=== PATIENT | female | born 2000 | race Caucasian/White ===

== ENCOUNTER → 2020-07-19 13:20 | Outpatient (CLI) | payer OTHER, MEDICAID, SELFPAY | PROVIDERS: Visit Provider Nurse Practitioner | DX: R30.0 Dysuria (principal) | CPT/HCPCS: 87077; 87086; 87186 ==

== ENCOUNTER → 2020-12-15 15:19 | Outpatient (CLI) | payer OTHER, MEDICAID, SELFPAY ==
[2020-12-15 16:18] LABS: Add Manual Diff / Slide Review NO; Basophils Absolute Auto 0 /uL (0-100); Basophils Percent Auto 0.8 % (0-2); Eosinophils Absolute Auto 0 /uL (0-450); Eosinophils Percent Auto 0.5 % (2-4); Hematocrit 40.6 % (36-46); Hemoglobin 13.5 g/dL (12.0-16.0); Lymphocytes Absolute Auto 1000 /uL (1100-4500); Lymphocytes Percent Auto 18.1 % (25-40); Mean Corpuscular HGB Conc 33.2 % (30-36); Mean Corpuscular Hemoglobin 30.8 PG (26-34); Mean Corpuscular Volume 92.9 fL (80-100); Monocytes Absolute Auto 400 /uL (0-900); Monocytes Percent Auto 6.9 % (3-14); Neutrophils Absolute Auto 3900 /uL (1500-7000); Neutrophils Percent Auto 73.7 % (50-75); Platelet Count 141 X10^3/uL (150-400); Red Blood Cell Count 4.37 X10^6/uL (4.0-5.2); Red Cell Distribution Width 13.1 % (11.6-14.8); White Blood Cell Count 5.3 X10^3/uL (4.5-11.0)
[2020-12-15 16:40] LABS: Appearance Urine UA CLEAR; Bilirubin Urine UA NEGATIVE (NEGATIVE); Color Urine UA YELLOW; Glucose Urine UA NEGATIVE (Negative); Ketones Urine UA NEGATIVE (NEGATIVE); Leukocyte Esterase Urine UA NEGATIVE (NEGATIVE); Nitrite Urine UA NEGATIVE (Negative); Occult Blood Urine UA TRACE-LYSED (Negative); Protein Urine UA NEGATIVE (Negative); Specific Gravity Urine UA 1.025 (1.000-1.035); Urobilinogen Urine UA 0.2 E.U./dL (0.2)
[2020-12-15 17:05] LABS: RBC Urine 1-5/HPF (0-5/HPF); Squamous Epithelial Cell Urine 1-5 /HPF (0-5/HPF); WBC Urine 0-1/HPF (0-5/HPF)
[2020-12-15 17:06] LABS: Bacteria Urine Many (>30); Culture Indicated Urine Cult Not Indicated
[2020-12-15 17:18] LABS: Alanine Aminotransferase 19 IU/L (<35); Albumin 4.7 g/dL (3.5-5.0); Albumin Globulin Ratio 1.7 (1.0-2.8); Alkaline Phosphatase 47 U/L (38-126); Aspartate Aminotransferase 27 IU/L (14-36); BUN Creatinine Ratio 21.3 (6-22); Bilirubin Total 0.2 mg/dL (0.2-1.3); Blood Urea Nitrogen 16 mg/dL (7-17); Calcium 9.7 mg/dL (8.4-10.2); Carbon Dioxide 26 mmol/L (22-32); Chloride 103 mmol/L (98-107); Estimated Glomerular Filt Rate > 60.0 mL/min (>60); Globulin 2.8 g/dL (1.7-4.1); Glucose 101 mg/dL (70-100); HEMOLYSIS < 15 (0-50); Lipase 51 U/L (23-300); Potassium 3.9 mmol/L (3.4-5.1); Sodium 137 mmol/L (137-145); Total Protein 7.5 g/dL (6.3-8.2)
[2020-12-15 17:48] LABS: TSH w/ Reflex to FT4 0.99 uIU/mL (0.47-4.68)
[2020-12-16 22:48] LABS: Deamidated Gliadin Ab IgA 5 units (0-19); Deamidated Gliadin Ab IgG 2 units (0-19); Immunoglobulin A,Qn 119 mg/dL (87-352); t-Transglutaminase IgA <2 U/mL (0-3)
== END ==
PROVIDERS: PCP Registered Nurse Diabetes Educator; Referring Provider Registered Nurse Diabetes Educator; Visit Provider Registered Nurse Diabetes Educator
DX: K52.9 Noninfective gastroenteritis and colitis, unspecified (principal); R15.2 Fecal urgency; R15.9 Full incontinence of feces
CPT/HCPCS: 36415; 80053; 81001; 82784; 83516; 83690; 84443; 85025

== ENCOUNTER → 2020-12-24 12:45 | Outpatient (CLI) | payer OTHER, MEDICAID, SELFPAY | PROVIDERS: PCP Registered Nurse Diabetes Educator; Referring Provider Registered Nurse Diabetes Educator; Visit Provider Registered Nurse Diabetes Educator | DX: K52.9 Noninfective gastroenteritis and colitis, unspecified (principal); R15.2 Fecal urgency; R15.9 Full incontinence of feces | CPT/HCPCS: 87045; 87177; 87899 ==

== ENCOUNTER → 2021-03-01 11:03 | Outpatient (CLI) | payer OTHER, MEDICAID, SELFPAY ==
[2021-03-01 12:37] LABS: COVID19 -Nasal RAPID Negative (Negative)
== END ==
PROVIDERS: PCP Registered Nurse Diabetes Educator; Visit Provider Physician Assistant
DX: Z20.822 Contact with and (suspected) exposure to COVID-19 (principal); Z01.812 Encounter for preprocedural laboratory examination
CPT/HCPCS: 87635

== ENCOUNTER 2021-03-03 12:12 | Day surgery (SDC) | payer OTHER, MEDICAID, SELFPAY ==
--- NOTE | 2021-03-03 | PATH_ITS ---
[facility] Accession Number: [id number] . 01 Material submitted: . colon - RANDOM COLON . 01 Clinical history: . DIARRHEA; RULE OUT IBD . 02 Diagnosis: Random Colon, Biopsies: Colonic mucosa with no diagnostic abnormality. Negative for active, chronic, and microscopic colitis. Negative for dysplasia and malignancy. . [facility] 03/05/2021 1122 Local . 02 Electronically signed: . Marguerite Mueller MD, Pathologist NPI- [id number] . 01 Gross description: . RANDOM COLON: Received in formalin are multiple fragment(s) of mac, soft tissue measuring 2.0 x 0.8 x 0.1 cm in aggregate submitted entirely in 1 cassette(s) /CHIP 03/04/2021 0637 Local . 02 Pathologist provided ICD-10: R19.7 . 02 CPT . 021667 Performed at: 01 [facility] [address], [place], [place] [id number] MD Kenji De Dios MD Phone: [phone] Performed at: 02 [facility] [address] [place], [place] [id number] MD Marguerite Mueller MD Phone: [phone]
[2021-03-03 12:33] VITALS: BMI 25.9
[2021-03-03 12:46] VITALS: BP 128/80; PULSE 75; RESP 12; TEMP 36.2; O2SAT 95
[2021-03-03] MEDS: SODIUM CHLORIDE 0.9% 1,000 ML 70 ML IV (12:56)
--- NOTE | 2021-03-03 13:27 | PM.HP.1 ---
History of Present Illness History of Present Illness Date Patient Seen: 03/03/21 Time Patient Seen: 13:21 Chief complaint: SDC Narrative: Patient is a very pleasant 18-year-old female who presented for colonoscopy. She has been having frequent diarrhea and episodes of fecal incontinence. She has continued to have these symptoms since being seen in the office. Patient History Medical History (Updated 01/20/21 @ 13:11 by Brandy Griffith) Chronic diarrhea History of recurrent UTI (urinary tract infection) History of seizure disorder No significant family history Recurrent UTI Seizure disorder Surgical History (Updated 01/20/21 @ 13:11 by Brandy Griffith) Anesthesia [place] teeth removed (~2013) Family & Social History Family History (Updated 01/20/21 @ 13:16 by Brandy Griffith) Grandmother Hypertension Inflammatory bowel disease Seizure disorder Thyroid disorder Stroke Epilepsy Family/Other Cancer Stroke Father Diabetes mellitus Hyperlipidemia Grandfather History of heart disease Hyperlipidemia Grandmother Diabetes mellitus History of heart disease Hyperlipidemia Hypertension Social History: household members family Tobacco & Substance use: Tobacco type cigarettes Smoking Status Current some day smoker alcohol intake current alcohol intake frequency a few times a week Substance Use Type does not use Meds Home Medications and Allergies Home Medications Medication Instructions Recorded Confirmed Type norgestrel 0.3 mg-ethinyl 1 tab PO DAILY 09/17/20 03/03/21 History estradiol 30 mcg tablet valacyclovir 500 mg tablet 500 mg PO DAILY 12/15/20 03/03/21 History Allergies Allergy/AdvReac Type Severity Reaction Status Date / Time Penicillins AdvReac Unknown Anaphylaxis Verified 03/03/21 12:30 Review of Systems Review of Systems ROS: Yes All systems reviewed with the patient and are negative except as otherwise documented Exam Vital Signs (past 8 hours): - 03/03/21 12:46 Temperature 97.2 F L Pulse Rate 75 Respiratory Rate 12 Blood Pressure 128/80 Pulse Oximetry 95 Oxygen Delivery Method Room Air Const General: cooperative, healthy appearing, comfortable, well developed and well groomed Nutritional Appearance: average body habitus Orientation: alert, awake and oriented x3 HENMT Head: normal to inspection, normocephalic and atraumatic Resp Effort & Inspection: normal respiratory effort and able to speak in complete sentences Auscultation: clear to auscultation bilaterally Cardio Rate: regular rate Rhythm: regular rhythm Heart Sounds: S1 normal and S2 normal GI Palpation: soft Auscultation: normal bowel sounds Extrem Right lower extremity: no edema Left lower extremity: no edema Assessment & Plan Assessment & Plan narrative: 1. Diarrhea 2. Fecal incontinence Colonoscopy today, further recommendations will follow
[2021-03-03] MEDS: fentaNYL 250 MCG/5 ML INJ IV (13:33)
[2021-03-03] MEDS: MIDAZOLAM 5 MG/5 ML VIAL IV ×2 (13:34→13:46)
[2021-03-03 13:59] VITALS: BP 111/68; PULSE 65; RESP 14; TEMP 36.5; O2SAT 98
--- NOTE | 2021-03-03 14:02 | PM.OP.ENDO ---
Operative Date/Time/Diagnoses Date of procedure: 03/03/21 Time of procedure: 13:33 Procedure Notes Procedure in detail: Surgeon: Eva Cowart DO Procedure: Colonoscopy with biopsies Preoperative diagnosis: 1. Diarrhea 2. Fecal incontinence Postoperative diagnosis: 1. Normal-appearing colon mucosa, random biopsies obtained 2. Normal-appearing terminal ileum 3. Grade 1 internal hemorrhoids 4. Pelvic floor dysfunction on awake rectal exam Medications: Conscious sedation using 7 mg IV of Midazolam and 175 mcg IV of Fentanyl Preanesthesia Assessment An H and P was performed/updated and the Px?s ASA class is 1. The procedure was discussed in detail with the patient. The potential risks and complications including infection, bleeding, missed lesions, perforation, need for surgery in case of perforation, prolonged hospital stay, and were explained. A brief question and answer period was allotted and once all questions were answered, informed consent was obtained. The patient was brought back to the procedure room and placed on standard monitoring. The patient?s vital signs were monitored continuously throughout the entire procedure. Prior to starting, a timeout was performed to confirm the patient?s identity, allergies, medications, and procedure. Procedure in detail The patient was placed in left lateral decubitus position and once adequate sedation was obtained a KE was performed prior to sedation. Patient was noted to have weak squeeze with good descent consistent with dyssynergic defecation. The digital rectal examination did not reveal any palpable lesions. The tip of the colonoscope was placed in the anal canal and advanced without difficulty all the way to the cecum which was identified by the appendiceal orifice and the ileocecal valve. Careful examination of all romo of the colon was performed with irrigation of any residual stool. Colon mucosa appeared unremarkable. Random colon biopsies were obtained to rule out microscopic colitis versus quiescent colitis. Terminal ileum appeared unremarkable. Grade 1 internal hemorrhoids were noted on retroflexion. The patient tolerated the procedure well and will be brought back to the recovery area to be discharged once criteria are met. The prep was judged to be good/excellent and adequate to identify polyps less than 5 mm. The withdrawal time was 8min. The total physician intraservice time was 20 min. Complications There were no complications and estimated blood loss was minimal. Recommendations: Resume previous diet Continue outPx medications Follow up pathology results Repeat colonoscopy based on pathology results Office follow up as previously scheduled Consider pelvic floor physical therapy An emergency contact number was given to the patient for any complications related to the procedure
[2021-03-03 14:04] VITALS: BP 103/59; PULSE 64; RESP 17; O2SAT 97
[2021-03-03 14:09] VITALS: BP 101/54; PULSE 64; RESP 17; O2SAT 96
[2021-03-03 14:14] VITALS: BP 104/53; PULSE 65; RESP 18; TEMP 36.4; O2SAT 96
[2021-03-03 14:18] VITALS: BP 114/67; PULSE 69; RESP 20; TEMP 36.8; O2SAT 100
== END 2021-03-03 14:29 | disposition home or self-care (01) ==
PROVIDERS: PCP Registered Nurse Diabetes Educator; Referring Provider Student in an Organized Health Care Education/Training Program; Visit Provider Student in an Organized Health Care Education/Training Program
PROC: 0DJD8ZZ Inspection of Lower Intestinal Tract, Via Natural or Artificial Opening Endoscopic (ICD-10-PCS; CPT 45378; principal; 2021-03-03 13:30)
DX: R19.7 Diarrhea, unspecified (principal); R15.9 Full incontinence of feces; G40.909 Epilepsy, unspecified, not intractable, without status epilepticus; Z87.440 Personal history of urinary (tract) infections; K64.0 First degree hemorrhoids
CPT/HCPCS: 45380; 81025; J2250; J3010

== ENCOUNTER → 2021-11-02 17:53 | Outpatient (CLI) | payer OTHER, MEDICAID, SELFPAY | PROVIDERS: PCP Registered Nurse Diabetes Educator; Visit Provider Student in an Organized Health Care Education/Training Program | DX: M54.9 Dorsalgia, unspecified (principal) | CPT/HCPCS: 81002; 81025; 87086 ==

== ENCOUNTER 2021-12-14 09:38 | Emergency (ER) | payer OTHER, MEDICAID, SELFPAY ==
[2021-12-14 10:16] VITALS: BP 147/87; PULSE 88; RESP 17; TEMP 36.6; O2SAT 100; BMI 23.6
--- NOTE | 2021-12-14 10:22 | DI.RAD.S_ITS ---
PROCEDURE: XR RIBS RT MIN 3V W CXR 1V INDICATIONS: rib pain TECHNIQUE: 2 views of the right ribs were acquired, along with a single view chest. COMPARISON: None. FINDINGS: Surgical changes and devices: None. Bones and chest wall: A marker is placed upon the area of clinical concern. Within this region, no displaced rib fracture or other significant rib abnormality can be seen. No rib fractures are seen elsewhere. No suspicious bony lesions. Overlying soft tissues appear unremarkable. Lungs and pleura: No pleural effusions or pneumothorax. Lungs appear clear. Mediastinum: Mediastinal contours appear normal. Heart size is normal. IMPRESSION: No displaced rib fracture is seen. No pneumothorax. Dictated by: Alexander Singh M.D. on 12/14/2021 at 9:58 Approved by: Alexander Singh M.D. on 12/14/2021 at 9:58
[2021-12-14 11:34] VITALS: BP 128/71; PULSE 65; O2SAT 100
--- NOTE | 2021-12-14 11:42 | PC.NURSE ---
Pt reports right sided rib pain located under breast. Movement makes pain worse. Breath sounds present bilaterally. States it is difficult/ painful to take a deep breath. Pt updated and waiting to be seen by MD.
--- NOTE | 2021-12-14 12:01 | ED.EXTPRO ---
HPI - Extremity Problem General Chief complaint: Extremity Problem,Nontraumatic Stated complaint: Sore rib, worsening Time Seen by Provider: 12/14/21 11:45 Source: patient Mode of arrival: Family Vehicle History of Present Illness HPI Narrative: Patient is a 21-year-old female who is here for evaluation of right-sided rib/chest wall discomfort. She states that it started a couple days ago. This was a couple days after she helped move her grandfather around in his bed. She does not remember specific incidence the cause the discomfort. She also states that she slept on the floor a couple nights after that. She states that on Monday she was seen at the walk-in clinic and was given a muscle relaxer which has not improved in the of her symptoms. It is tender to touch and is tender to take a deep breath. Has been taking Tylenol and ibuprofen. No breast symptoms. Related Data Home Medications Medication Instructions Recorded Confirmed norgestrel 0.3 mg-ethinyl 1 tab PO DAILY 09/17/20 11/02/21 estradiol 30 mcg tablet (Elinest) valacyclovir 500 mg tablet 500 mg PO DAILY 12/15/20 11/02/21 Previous Rx's Medication Instructions Recorded glycopyrronium tosylate 2.4 % 1 applic TOPICAL DAILY #30 ea 05/27/21 towelette methocarbamol 500 mg tablet See Rx Instructions PO Q6-8H PRN 12/10/21 #20 tab Allergies Allergy/AdvReac Type Severity Reaction Status Date / Time Penicillins AdvReac Unknown Anaphylaxis Verified 11/02/21 18:00 Review of Systems Constitutional Constitutional: Denies fever(s) Cardiovascular Cardiovascular: Reports as per HPI and Reports system reviewed and no additional complaints, except as documented Respiratory Respiratory: Reports as per HPI and Reports system reviewed and no additional complaints, except as documented Gastrointestinal Gastrointestinal: Reports as per HPI and Reports system reviewed and no additional complaints, except as documented Integumentary/Breasts Skin/Breast: Reports system reviewed and no additional complaints, except as documented and Reports as per HPI Hematologic/Lymphatic On Anticoagulants: No Patient History Medical History Chronic diarrhea History of recurrent UTI (urinary tract infection) History of seizure disorder Hyperhidrosis of axilla No significant family history Recurrent UTI Seizure disorder Surgical History Anesthesia [place] teeth removed (~2013) Family History Grandmother Hypertension Inflammatory bowel disease Seizure disorder Thyroid disorder Stroke Epilepsy Family/Other Cancer Stroke Father Diabetes mellitus Hyperlipidemia Grandfather History of heart disease Hyperlipidemia Grandmother Diabetes mellitus History of heart disease Hyperlipidemia Hypertension Social History marital status: unmarried,single household members: family occupational status: employed Smoking Status: Current some day smoker Tobacco: How many years used: 2 alcohol intake: current caffeine: No Smoking Status: Current some day smoker tobacco type: cigarettes alcohol intake frequency: 0-2 drinks per day Substance Use Type: does not use and marijuana Exam Initial Vital Signs Initial Vital Signs: Vital Signs Temperature 98 F 12/14/21 10:16 Pulse Rate 88 12/14/21 10:16 Respiratory Rate 17 12/14/21 10:16 Blood Pressure 147/87 H 12/14/21 10:16 Pulse Oximetry 100 12/14/21 10:16 HENMT Head: normal to inspection and normocephalic Chest Other: Patient tender to palpation mid/lower ribs from mid axillary line anterior. Resp Effort & Inspection: normal respiratory effort, not labored and not tachypneic Auscultation: clear to auscultation bilaterally Cardio Rate: regular rate Rhythm: regular rhythm Skin General: no rashes or lesions noted Neuro General: patient alert, patient awake, patient oriented x3 and moves all extremities Extrem General: normal to inspection and capillary refill normal Psych Appearance: grossly normal and well kempt Course Orders Ordered: ED Orders 12/14/21 10:22 XR ribs RT min 3V w CXR1V Stat Vital Signs Vital signs: Vital Signs - 8 hr 12/14/21 10:16 12/14/21 11:34 Temperature 98 F Pulse Rate 88 65 Respiratory Rate 17 Blood Pressure 147/87 H 128/71 Pulse Oximetry 100 100 MDM - Extremity (Nontraumatic) Imaging Data Rib x-ray: Radiologist's Impression: [address] [address] XRay Report Signed Patient: Norah Mims MR#: [id number] : 2000 Acct:[id number] Age/Sex: 21 / F Date of Service: 12/14/21 Loc: ED Accession Number: [id number] ?? Procedure: XR ribs RT min 3V w CXR1V Ordering Provider: Rehan Glover D.O. PROCEDURE:? XR RIBS RT MIN 3V W CXR 1V ? INDICATIONS:? rib pain ? TECHNIQUE:? 2 views of the right ribs were acquired, along with a single view chest.? ? COMPARISON:? None. ? FINDINGS:? ? Surgical changes and devices:? None.? ? Bones and chest wall:? A marker is placed upon the area of clinical concern.? Within this region, no displaced rib fracture or other significant rib abnormality can be seen.? No rib fractures are seen elsewhere.? No suspicious bony lesions.? ? Overlying soft tissues appear unremarkable.? ? Lungs and pleura:? No pleural effusions or pneumothorax.? Lungs appear clear.? ? Mediastinum:? Mediastinal contours appear normal.? Heart size is normal.? IMPRESSION:? No displaced rib fracture is seen. ? No pneumothorax. ? ? Dictated by: Alexander Singh M.D. on 12/14/2021 at 9:58 ? ? Approved by: Alexander Singh M.D. on 12/14/2021 at 9:58 MDM Narrative Medical decision making narrative: Reproducible right-sided chest wall discomfort without fractures noted on the x-rays. There is no skin changes over the area. I did consider other lung pathology to include pulmonary embolism and pneumonia and collapsed lung however I feel this is extremely unlikely given her presentation. I suspect that this is musculoskeletal in origin and given the location consistent with costochondritis. I did discuss this with the patient and family who was at bedside. Inform them that they could most likely stop the Flexeril as it is not going to help her symptoms. She was given return precautions. She expressed understanding and agreement. Discharge Plan Departure Patient Disposition: Home Clinical Impression: Acute costochondritis Instructions: DI for Costochondritis Activity Restrictions/Additional Instructions: I do recommend that you continue with anti-inflammatories such as Tylenol or ibuprofen. Contact your primary doctor for a follow-up. Return to the emergency department for any new or worsening symptoms. Prescriptions: No Action methocarbamol 500 mg tablet See Rx Instructions PO Q6-8H PRN (Reason: muscle spasm) Qty: 20 0RF Rx Instructions: 1-2 tablets PO every 6-8 hours PRN; Elinest 0.3-30 mg-mcg tablet 1 tab PO DAILY 0RF valacyclovir 500 mg tablet 500 mg PO DAILY 0RF glycopyrronium tosylate 2.4 % towelette 1 applic topical DAILY Qty: 30 1RF Referrals: Jose Banuelos ARNP [Primary Care Provider] -
== END 2021-12-14 12:11 | disposition home or self-care (01) ==
PROVIDERS: Emergency Provider Emergency Medicine; PCP Registered Nurse Diabetes Educator
DX: M94.0 Chondrocostal junction syndrome [Tietze] (principal); F17.210 Nicotine dependence, cigarettes, uncomplicated
CPT/HCPCS: 71101; 99283

== ENCOUNTER → 2022-01-03 09:11 | Outpatient (CLI) | payer OTHER, MEDICAID, SELFPAY | PROVIDERS: PCP Registered Nurse Diabetes Educator; Visit Provider Registered Nurse Diabetes Educator | DX: N94.9 Unspecified condition associated with female genital organs and menstrual cycle (principal); N89.8 Other specified noninflammatory disorders of vagina | CPT/HCPCS: 81002; 87086; 87210; 87220 ==

== ENCOUNTER → 2022-02-09 11:40 | Outpatient (CLI) | payer OTHER, MEDICAID, SELFPAY | PROVIDERS: PCP Registered Nurse Diabetes Educator; Visit Provider Physician Assistant | DX: N39.0 Urinary tract infection, site not specified (principal) | CPT/HCPCS: 87086 ==

== ENCOUNTER → 2022-02-09 12:30 | Outpatient (CLI) | payer OTHER, MEDICAID, SELFPAY ==
[2022-02-09 12:51] LABS: Hematocrit 37.5 % (36-46); Hemoglobin 12.8 g/dL (12.0-16.0); Lymphocytes Percent Auto 14.1 % (25-40); Mean Corpuscular HGB Conc 34.2 % (30-36); Mean Corpuscular Hemoglobin 30.6 PG (26-34); Mean Corpuscular Volume 89.5 fL (80-100); Monocytes Percent Auto 6.2 % (3-14); Neutrophils Percent Auto 78.9 % (50-75); Platelet Count 132 X10^3/uL (150-400); Red Blood Cell Count 4.19 X10^6/uL (4.0-5.2); Red Cell Distribution Width 12.8 % (11.6-14.8); White Blood Cell Count 5.5 X10^3/uL (4.5-11.0)
[2022-02-09 12:52] LABS: Add Manual Diff / Slide Review NO; Basophils Absolute Auto 0 /uL (0-100); Basophils Percent Auto 0.7 % (0-2); Eosinophils Absolute Auto 0 /uL (0-450); Eosinophils Percent Auto 0.1 % (2-4); Lymphocytes Absolute Auto 800 /uL (1100-4500); Monocytes Absolute Auto 300 /uL (0-900); Neutrophils Absolute Auto 4300 /uL (1500-7000)
[2022-02-09 13:06] LABS: Alanine Aminotransferase 35 IU/L (<35); Albumin 4.5 g/dL (3.5-5.0); Albumin Globulin Ratio 1.9 (1.0-2.8); Alkaline Phosphatase 41 U/L (38-126); Aspartate Aminotransferase 29 IU/L (14-36); BUN Creatinine Ratio 9.5 (6-22); Bilirubin Total 0.6 mg/dL (0.2-1.3); Blood Urea Nitrogen 7 mg/dL (7-17); Calcium 9.1 mg/dL (8.4-10.2); Carbon Dioxide 25 mmol/L (22-32); Chloride 105 mmol/L (98-107); Creatine Kinase 57 U/L (30-135); Estimated Glomerular Filt Rate > 60 mL/min (>60); Globulin 2.4 g/dL (1.7-4.1); Glucose 88 mg/dL (70-100); HEMOLYSIS < 15 (0-50); Potassium 3.7 mmol/L (3.4-5.1); Sodium 138 mmol/L (137-145); Total Protein 6.9 g/dL (6.3-8.2)
== END ==
PROVIDERS: Physician Assistant; PCP Registered Nurse Diabetes Educator; Referring Provider Registered Nurse Diabetes Educator; Visit Provider Registered Nurse Diabetes Educator
DX: M54.9 Dorsalgia, unspecified (principal); N39.0 Urinary tract infection, site not specified
CPT/HCPCS: 36415; 80053; 81002; 82550; 85025; 87086

== ENCOUNTER → 2022-08-10 11:13 | Outpatient (CLI) | payer OTHER, MEDICAID, SELFPAY ==
--- NOTE | 2022-08-10 11:14 | DI.US.S_ITS ---
PROCEDURE: US OB <= 14 WEEKS FETUS INDICATIONS: dating and viability OUTSIDE/PRIOR DATING DATA: Last menstrual period (LMP): 06/11/2022. LMP-based estimated date of delivery (EVELINE): 03/18/2023. First dating scan (date and location): 08/10/2022. Estimated date of delivery (EVELINE) from first dating scan: 03/21/2023. The calculations are made using the clinical EVELINE of 03/18/2023. TECHNIQUE: Real-time scanning was performed of the fetus, with image documentation and biometric measurements. COMPARISON: None. FINDINGS: Single live intrauterine with crown-rump length measuring 1.7 cm corresponding to 8 weeks 1 day. heart rate is present 168 beats per minute. Left corpus luteal cyst. IMPRESSION: Single live intrauterine with ultrasound gestational age of 8 weeks 1 day. Recommend follow-up imaging at 20-22 weeks for dates and anatomy. We strive to produce accurate, complete, and clear reports of imaging services. To assist us in improving patient care, this report was composed using standard report templates and voice recognition software. Therefore, it may contain abnormal punctuation, insertions and/or omissions. Occasional wrong-word or sound-alike substitutions may occur. Though we review the report and make efforts to correct it, we do recommend that the report be read carefully in proper context to recognize any text inaccuracies. Dictated by: Nancy Larkin M.D. on 08/10/2022 at 17:18 Approved by: Nancy Larkin M.D. on 08/10/2022 at 17:20
== END ==
PROVIDERS: PCP Registered Nurse Diabetes Educator; Referring Provider Obstetrics & Gynecology; Visit Provider Obstetrics & Gynecology
DX: Z34.01 Encounter for supervision of normal first pregnancy, first trimester (principal); Z3A.08 8 weeks gestation of pregnancy
CPT/HCPCS: 76801; 76817

== ENCOUNTER → 2022-09-01 11:57 | Outpatient (CLI) | payer OTHER, MEDICAID, SELFPAY ==
[2022-09-01 13:36] LABS: Add Manual Diff / Slide Review NO; Basophils Absolute Auto 0 /uL (0-100); Basophils Percent Auto 0.4 % (0-2); Eosinophils Absolute Auto 0 /uL (0-450); Eosinophils Percent Auto 0.3 % (2-4); Hematocrit 36.9 % (36-46); Hemoglobin 12.7 g/dL (12.0-16.0); Lymphocytes Absolute Auto 800 /uL (1100-4500); Lymphocytes Percent Auto 11.6 % (25-40); Mean Corpuscular HGB Conc 34.4 % (30-36); Mean Corpuscular Volume 90.2 fL (80-100); Monocytes Absolute Auto 300 /uL (0-900); Monocytes Percent Auto 5.4 % (3-14); Neutrophils Absolute Auto 5400 /uL (1500-7000); Neutrophils Percent Auto 82.3 % (50-75); Platelet Count 128 X10^3/uL (150-400); Red Blood Cell Count 4.09 X10^6/uL (4.0-5.2); Red Cell Distribution Width 12.6 % (11.6-14.8); White Blood Cell Count 6.5 X10^3/uL (4.5-11.0)
[2022-09-01 13:37] LABS: Appearance Urine UA SL CLOUDY; Bilirubin Urine UA NEGATIVE (NEGATIVE); Color Urine UA YELLOW; Glucose Urine UA NEGATIVE (Negative); Ketones Urine UA NEGATIVE (NEGATIVE); Leukocyte Esterase Urine UA 1+ (NEGATIVE); Nitrite Urine UA NEGATIVE (Negative); Occult Blood Urine UA NEGATIVE (Negative); Protein Urine UA TRACE (Negative); Urobilinogen Urine UA 0.2 E.U./dL (0.2)
[2022-09-01 14:43] LABS: RBC Urine None Seen (0-5/HPF); Squamous Epithelial Cell Urine 1-5 /HPF (0-5/HPF); WBC Urine 5-10/HPF (0-5/HPF)
[2022-09-01 14:44] LABS: Amorphous Sediment Urine 1+; Bacteria Urine Moderate (10-30); Culture Indicated Urine Specimen Cultured; Mucus Urine 1+ (Negative)
[2022-09-01 16:37] LABS: HIV 1 & 2 Ab/Ag 4th Gen Combo NEGATIVE (NEGATIVE); Hep C Virus Ab w/Reflex Quant NEGATIVE s/c (NEGATIVE); Hepatitis B Surface Antigen NEGATIVE s/c (NEGATIVE); Rubella Antibody IgG 46.5 IU/mL (>15)
[2022-09-02 07:17] LABS: Varicella IgG Antibody 699 index (Immune >165)
[2022-09-02 09:01] LABS: RPR Screen Non Reactive (Non Reactive)
== END ==
PROVIDERS: PCP Registered Nurse Diabetes Educator; Referring Provider Obstetrics & Gynecology; Visit Provider Obstetrics & Gynecology
DX: Z34.01 Encounter for supervision of normal first pregnancy, first trimester (principal)
CPT/HCPCS: 36415; 80055; 81003; 81015; 86787; 86803; 86850; 86900; 86901; 87086; 87389

== ENCOUNTER → 2022-10-05 12:22 | Outpatient (CLI) | payer OTHER, MEDICAID, SELFPAY ==
[2022-10-07 22:07] LABS: AFP, Serum 35.4 ng/mL (.); Estriol, Free 0.99 ng/mL (.); Inhibin A, Dimeric 229.44 pg/mL (.); Inhibin A, MoM 1.45 (.); Maternal Ethnicity Caucasian (.); Maternal Weight 148 lbs (.); Number of Fetuses No (.); OSBR Risk 1 IN 10000 (.); Results Report (.); Test Results *Screen Negative* (.); hCG, MoM 1.18 (.); hCG, Serum 46056 mIU/mL (.)
== END ==
PROVIDERS: PCP Registered Nurse Diabetes Educator; Referring Provider Obstetrics & Gynecology; Visit Provider Obstetrics & Gynecology
DX: Z34.02 Encounter for supervision of normal first pregnancy, second trimester (principal); Z3A.16 16 weeks gestation of pregnancy
CPT/HCPCS: 36415; 82105; 82677; 84702; 86336

== ENCOUNTER → 2022-11-02 10:22 | Outpatient (CLI) | payer OTHER, MEDICAID, SELFPAY ==
--- NOTE | 2022-11-02 10:23 | DI.US.S_ITS ---
PROCEDURE: US OB >= 14 WEEKS FETUS INDICATIONS: ANATOMY OUTSIDE/PRIOR DATING DATA: Last menstrual period (LMP): 06/11/2023. LMP-based estimated date of delivery (EVELINE): 03/18/2023 First dating scan (date and location): 08/10/2022 Estimated date of delivery (EVELINE) from first dating scan: 03/21/2023 The calculations are made using the working EVELINE of 03/18/2023 TECHNIQUE: Real-time scanning was performed of the fetus, with image documentation and biometric measurements. Endovaginal scanning: Not indicated COMPARISON: None. FINDINGS: General: A single living intrauterine gestation is present. Presentation: Vertex Placenta: Placental position is posterior, without previa. Amniotic fluid index: 13.2 cm, normal range is 5-24 cm. Single deepest vertical pocket is 3.9 cm. heart rate: 149 beats per minute. Maternal cervical canal: 4.4 cm long. Normal lower limit is 2.5 cm. biometrics: Biparietal diameter: 4.6 cm, 19 weeks, 6 days. Head circumference: 17.5 cm, 20 weeks, 0 day. Abdominal circumference: 15.1 cm, 20 weeks, 2 days. Femur length: 3.2 cm, 19 weeks, 6 days. Clinically estimated gestational age: 20 weeks, 4 days. Composite gestational age from present scan: 20 weeks, 0 day. Estimated weight and percentile: 330 g, 21%. Anatomic survey: Neuro: Ventricles are non-dilated at less than 10 mm. Cisterna magna is normal at 3-11 mm. Cerebellum is normal in size and morphology. Nuchal skin fold: Normal at less than 6 mm between 14-21 weeks gestational age. Face: Nose and lips, facial profile are normal. Spine: No evidence for spina bifida. Heart: 4-chambered heart is present, with normal ventricular outflow tracts. Diaphragm: Diaphragm is intact. Stomach: Left-sided stomach is present. Kidneys: No hydronephrosis. Normal is less than 5 mm in 2nd trimester, less than 7 mm in 3rd trimester. Cord: 3-vessel cord has orthotopic insertion. Bladder: Normal in size. Extremities: All 4 extremities identified. IMPRESSION: 1. Single live intrauterine gestation with fetus in vertex presentation. heart rate is 149 beats per minute. Normal amount of amniotic fluid. Normal growth. Estimated weight is at 21%. 2. Normal anatomic survey. We strive to produce accurate, complete, and clear reports of imaging services. To assist us in improving patient care, this report was composed using standard report templates and voice recognition software. Therefore, it may contain abnormal punctuation, insertions and/or omissions. Occasional wrong-word or sound-alike substitutions may occur. Though we review the report and make efforts to correct it, we do recommend that the report be read carefully in proper context to recognize any text inaccuracies. Dictated by: Torrey Marie M.D. on 11/02/2022 at 11:31 Approved by: Torrey Marie M.D. on 11/02/2022 at 11:33
== END ==
PROVIDERS: PCP Registered Nurse Diabetes Educator; Referring Provider Obstetrics & Gynecology; Visit Provider Obstetrics & Gynecology
DX: Z34.02 Encounter for supervision of normal first pregnancy, second trimester (principal); Z3A.20 20 weeks gestation of pregnancy; Z87.440 Personal history of urinary (tract) infections
CPT/HCPCS: 76811; 87086

== ENCOUNTER → 2022-11-02 12:08 | Outpatient (CLI) | payer OTHER, MEDICAID, SELFPAY | PROVIDERS: PCP Registered Nurse Diabetes Educator; Visit Provider Obstetrics & Gynecology | DX: Z34.90 Encounter for supervision of normal pregnancy, unspecified, unspecified trimester (principal); Z87.440 Personal history of urinary (tract) infections | CPT/HCPCS: 87086 ==

== ENCOUNTER → 2022-12-21 09:13 | Outpatient (CLI) | payer OTHER, MEDICAID, SELFPAY ==
[2022-12-21 11:30] LABS: Hematocrit 32.6 % (36-46); Hemoglobin 11.1 g/dL (12.0-16.0)
[2022-12-21 12:04] LABS: GTT (PREG) 1 Hour PP 50gm Dose 117 mg/dL (76-139)
== END ==
PROVIDERS: PCP Registered Nurse Diabetes Educator; Referring Provider Specialist; Visit Provider Specialist
DX: Z34.02 Encounter for supervision of normal first pregnancy, second trimester (principal); Z3A.26 26 weeks gestation of pregnancy
CPT/HCPCS: 36415; 82950; 85014; 85018

== ENCOUNTER → 2022-12-30 10:12 | Outpatient (CLI) | payer OTHER, MEDICAID, SELFPAY ==
[2022-12-30 11:27] LABS: Add Manual Diff / Slide Review NO; Basophils Absolute Auto 100 /uL (0-100); Basophils Percent Auto 0.5 % (0-2); Eosinophils Absolute Auto 0 /uL (0-450); Eosinophils Percent Auto 0.3 % (2-4); Hematocrit 33.2 % (36-46); Hemoglobin 11.6 g/dL (12.0-16.0); Lymphocytes Absolute Auto 1000 /uL (1100-4500); Mean Corpuscular HGB Conc 34.9 % (30-36); Mean Corpuscular Hemoglobin 31.6 PG (26-34); Mean Corpuscular Volume 90.7 fL (80-100); Monocytes Absolute Auto 600 /uL (0-900); Monocytes Percent Auto 5.6 % (3-14); Neutrophils Absolute Auto 8200 /uL (1500-7000); Neutrophils Percent Auto 83.6 % (50-75); Platelet Count 123 X10^3/uL (150-400); Red Blood Cell Count 3.66 X10^6/uL (4.0-5.2); Red Cell Distribution Width 13.3 % (11.6-14.8); White Blood Cell Count 9.9 X10^3/uL (4.5-11.0)
== END ==
PROVIDERS: PCP Registered Nurse Diabetes Educator; Referring Provider Obstetrics & Gynecology; Visit Provider Obstetrics & Gynecology
DX: O99.119 Other diseases of the blood and blood-forming organs and certain disorders involving the immune mechanism complicating pregnancy, unspecified trimester (principal); D69.6 Thrombocytopenia, unspecified
CPT/HCPCS: 36415; 85025

== ENCOUNTER → 2023-01-25 14:09 | Outpatient (CLI) | payer OTHER, MEDICAID, SELFPAY | PROVIDERS: PCP Registered Nurse Diabetes Educator; Visit Provider Obstetrics & Gynecology | DX: Z34.82 Encounter for supervision of other normal pregnancy, second trimester (principal); Z3A.16 16 weeks gestation of pregnancy; Z87.440 Personal history of urinary (tract) infections | CPT/HCPCS: 87086 ==

== ENCOUNTER → 2023-02-24 13:13 | Outpatient (CLI) | payer OTHER, MEDICAID, SELFPAY ==
[2023-02-24 13:30] LABS: Add Manual Diff / Slide Review NO; Basophils Absolute Auto 0 /uL (0-100); Basophils Percent Auto 0.3 % (0-2); Eosinophils Absolute Auto 0 /uL (0-450); Eosinophils Percent Auto 0.3 % (2-4); Lymphocytes Absolute Auto 900 /uL (1100-4500); Lymphocytes Percent Auto 8.8 % (25-40); Mean Corpuscular HGB Conc 34.2 % (30-36); Mean Corpuscular Hemoglobin 31.1 PG (26-34); Mean Corpuscular Volume 90.9 fL (80-100); Monocytes Absolute Auto 700 /uL (0-900); Monocytes Percent Auto 6.9 % (3-14); Neutrophils Absolute Auto 8400 /uL (1500-7000); Neutrophils Percent Auto 83.7 % (50-75); Platelet Count 142 X10^3/uL (150-400); Red Blood Cell Count 4.18 X10^6/uL (4.0-5.2); Red Cell Distribution Width 13.3 % (11.6-14.8); White Blood Cell Count 10.1 X10^3/uL (4.5-11.0)
[2023-02-25 15:44] LABS: Strep Grp B PCR NEG for Grp B Strep
== END ==
PROVIDERS: PCP Registered Nurse Diabetes Educator; Referring Provider Obstetrics & Gynecology; Visit Provider Obstetrics & Gynecology
DX: O99.113 Other diseases of the blood and blood-forming organs and certain disorders involving the immune mechanism complicating pregnancy, third trimester; D69.6 Thrombocytopenia, unspecified; Z3A.36 36 weeks gestation of pregnancy
CPT/HCPCS: 36415; 85025; 87653

== ENCOUNTER 2023-02-24 13:16 | Outpatient (CLI) | payer OTHER, MEDICAID, SELFPAY | END 2023-02-24 14:20 | disposition home or self-care (01) | LOC: LABOR 13:55 → OB 02-27 13:58 | PROVIDERS: PCP Registered Nurse Diabetes Educator; Referring Provider Obstetrics & Gynecology; Visit Provider Obstetrics & Gynecology | DX: Z03.71 Encounter for suspected problem with amniotic cavity and membrane ruled out (principal); O36.8130 Decreased fetal movements, third trimester, not applicable or unspecified; O99.113 Other diseases of the blood and blood-forming organs and certain disorders involving the immune mechanism complicating pregnancy, third trimester; D69.6 Thrombocytopenia, unspecified; Z3A.36 36 weeks gestation of pregnancy | CPT/HCPCS: 36415; 59025; 84112; 85025; 87653; G0378; G0379 ==

== ENCOUNTER 2023-03-17 16:23 | Observation (INO) | payer OTHER, MEDICAID, SELFPAY ==
[2023-03-17 17:25] LABS: Add Manual Diff / Slide Review NO; Basophils Absolute Auto 100 /uL (0-100); Basophils Percent Auto 0.8 % (0-2); Eosinophils Absolute Auto 0 /uL (0-450); Eosinophils Percent Auto 0.3 % (2-4); Hematocrit 35.4 % (36-46); Lymphocytes Absolute Auto 1100 /uL (1100-4500); Lymphocytes Percent Auto 10.1 % (25-40); Mean Corpuscular Hemoglobin 30.8 PG (26-34); Mean Corpuscular Volume 90.6 fL (80-100); Monocytes Absolute Auto 600 /uL (0-900); Monocytes Percent Auto 5.9 % (3-14); Neutrophils Absolute Auto 8700 /uL (1500-7000); Neutrophils Percent Auto 82.9 % (50-75); Platelet Count 144 X10^3/uL (150-400); Red Cell Distribution Width 13.6 % (11.6-14.8); White Blood Cell Count 10.5 X10^3/uL (4.5-11.0)
[2023-03-17 17:35] LABS: Alanine Aminotransferase 18 IU/L (<35); Albumin 3.5 g/dL (3.5-5.0); Albumin Globulin Ratio 1.1 (1.0-2.8); Alkaline Phosphatase 147 U/L (38-126); Aspartate Aminotransferase 25 IU/L (14-36); BUN Creatinine Ratio 13.1 (6-22); Bilirubin Total 0.2 mg/dL (0.2-1.3); Blood Urea Nitrogen 8 mg/dL (7-17); Calcium 8.4 mg/dL (8.4-10.2); Carbon Dioxide 25 mmol/L (22-32); Chloride 103 mmol/L (98-107); Estimated Glomerular Filt Rate > 60 mL/min (>60); Globulin 3.1 g/dL (1.7-4.1); Glucose 107 mg/dL (70-100); HEMOLYSIS < 15 (0-50); Potassium 4.3 mmol/L (3.4-5.1); Sodium 133 mmol/L (137-145); Total Protein 6.6 g/dL (6.3-8.2)
[2023-03-17 18:18] LABS: Protein (Total) Urine Random < 5 mg/dL (0-12); Protein Creatinine Ratio Urine < 0.06 GRAM/24H
--- NOTE | 2023-03-17 21:45 | P.TNLD_ITS ---
Visit Information Visit Information Date of evaluation: 03/17/23 Primary OB Provider: Liam Arteaga On-call OB Provider: Aicha Morales Comments/Additional reasons for admission: Elevated BP and swelling Patient reports noticing increased swelling. Took blood pressures at home and they were elevated to 140s over 90s. No headache or blurred vision. No right upper quadrant or mid epigastric pain. No spots before her eyes. Vital Signs Vital Signs: Blood pressure: 110's-120's/60's-70's [facility] Medical History (Updated 03/14/23 @ 10:19 by Liam Arteaga MD) Abdominal pain Chronic diarrhea Fecal incontinence (~2018) History of recurrent UTI (urinary tract infection) History of seizure disorder Hyperhidrosis of axilla Irritable bowel syndrome (~2018) No significant family history Surgical History (Updated 07/18/22 @ 10:39 by Courtney Benoit RN) Anesthesia H/O colonoscopy [place] teeth removed (~2013) Family History (Updated 07/18/22 @ 10:42 by Courtney Benoit RN) Grandmother Hypertension Seizure disorder Epilepsy History of heart disease Myocardial infarction Family/Other Cancer Stroke Father Diabetes mellitus Hyperlipidemia Grandfather History of heart disease Hyperlipidemia Grandmother Diabetes mellitus History of heart disease Hyperlipidemia Hypertension Grandfather No problems noted. Grandmother Myocardial infarction Stroke COPD (chronic obstructive pulmonary disease) Social History marital status: unmarried,living together number of children: 0 household members: significant other and family lives independently: Yes housing: apartment pets and animals: Yes (1 dogs) education level: college (Associate's degree) occupational status: employed current occupational exposures/hazards: No special morgan needs: No travel history: over 6 months ago seatbelt use: always helmet use: Yes water heater temp set < 120 deg: Yes working smoke detector in home: Yes fire extinguisher in home: Yes carbon monox detector in home: Yes firearms in home: Yes firearms unloaded and locked: Yes do you feel safe at home: Yes Smoking Status: Former smoker (Quit when she learned she was pregnnat) Tobacco: How many years used: 2 second hand exposure: Yes (boyfriend vapes outside, will quit before baby born) alcohol intake: former (1/day prior to learning of ) substance use type: does not use during the past year weight has: other (recent wide fluctuations due to stress) well-balanced diet: daily or most days daily servings fruits/ve or more times/day caffeine: Yes (occasional, aware of 200mg limit) Type(s) of exercise: none (active, but no focused exercise) Exam Narrative Exam Narrative: Generally: Patient is sitting up in bed, no acute distress Extremities: 1+ edema, 1+ DTRs, negative clonus Objective Labs 03/17/23 17:15 03/17/23 17:15 Labs: Laboratory Results - last 24 hr 03/17/23 03/17/23 03/17/23 17:15 17:15 17:42 WBC 10.5 RBC 3.90 L Hgb 12.0 Hct 35.4 L MCV 90.6 MCH 30.8 MCHC 34.0 RDW 13.6 Plt Count 144 L Neut % (Auto) 82.9 H Lymph % (Auto) 10.1 L [place] % (Auto) 5.9 Eos % (Auto) 0.3 L Baso % (Auto) 0.8 Neut # (Auto) 8700 H Lymph # (Auto) 1100 [place] # (Auto) 600 Eos # (Auto) 0 Baso # (Auto) 100 Sodium 133 L Potassium 4.3 Chloride 103 Carbon Dioxide 25 BUN 8 Creatinine 0.61 Estimated GFR > 60 BUN/Creatinine Ratio 13.1 Glucose 107 H Calcium 8.4 Total Bilirubin 0.2 AST 25 ALT 18 Alkaline Phosphatase 147 H Total Protein 6.6 Albumin 3.5 Globulin 3.1 Albumin/Globulin Ratio 1.1 U Random Total Protein < 5 Urine Creatinine 83.0 Protein/Creatinin Ratio < 0.06 Evaluation Evaluation Baseline heart rate: 135 Variability: Moderate (11-25) monitor accelerations: Present Monitor Decelerations: Absent Uterine Contraction Intensity: Mild Category of Tracing: Reactive Diagnosis, Plan/Disposition Plan/Disposition Plan: Assessment: 22-year-old 1 para 0 at 39-,6/7 weeks gestation with elevated blood pressures and lower extremity swelling Normal preeclampsia labs Blood pressure is normal in the center Plan: Discharge to home kick counts discuss Signs and symptoms of preeclampsia reviewed Follow-up with Dr. Arteaga March 22, 2023 OB Disposition: home
== END 2023-03-17 19:02 | disposition home or self-care (01) ==
PROVIDERS: Admitting Provider Obstetrics & Gynecology; PCP Registered Nurse Diabetes Educator; Referring Provider Obstetrics & Gynecology; Visit Provider Obstetrics & Gynecology
DX: O26.893 Other specified pregnancy related conditions, third trimester (principal); R03.0 Elevated blood-pressure reading, without diagnosis of hypertension; M79.89 Other specified soft tissue disorders; Z3A.39 39 weeks gestation of pregnancy
CPT/HCPCS: 36415; 59025; 59050; 80053; 82570; 84156; 85025; G0378; G0379

== ENCOUNTER 2023-03-22 10:08 | Outpatient (CLI) | payer OTHER, MEDICAID, SELFPAY | END 2023-03-22 11:30 | disposition home or self-care (01) | LOC: LABOR 10:23 → OB 03-24 16:15 | PROVIDERS: PCP Registered Nurse Diabetes Educator; Referring Provider Obstetrics & Gynecology; Visit Provider Obstetrics & Gynecology | DX: O23.43 Unspecified infection of urinary tract in pregnancy, third trimester (principal); Z3A.40 40 weeks gestation of pregnancy | CPT/HCPCS: 59025; 76815; G0378; G0379 ==

== ENCOUNTER 2023-03-27 19:22 | Inpatient (IN) | payer OTHER, MEDICAID, SELFPAY ==
--- NOTE | 2023-03-27 20:39 | PM.OBHP.1 ---
OB HPI Date/Time Date of admission: 03/27/23 Date Patient Seen: 03/28/23 Time Patient Seen: 07:00 History of Present Condition Chief complaint: IUP, 41+3 wks EGA, post-dates, GBS negative : 1 Para: 0 Estimated Date of Delivery: 03/18/23 Estimated Gestational Age (weeks): 41+2 Narrative: Norah Mims is a 22 year old primigravida admitted now at 41+2 wks EGA for ripening/induction due to post-dates. 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 Dating is solid and milestones have been appropriate throughout the . GBS is negative. Indications Indication for induction OB: post dates History of Present care: good care Dating criteria: LMP confirmed by 1st trimester US Ultrasounds: normal 1st trimester US and normal mid trimester US Obstetrical complications: none Medical complications: none Preadmission Labs Blood type: O (+) positive -: Antibody screen: negative, GBS status: negative, HBsAG: negative, HIV: negative and RPR/VDLR: negative -: Chlamydia screen: not detected and Gonorrhea screen: not detected -: Rubella: immune and Varicella: immune HCT: 35.4 HCAB: negative PAP: Normal Quad screen: Normal 1 hr GTT: 117 Prior (ies) History: Primigravida Evaluation Evaluation Baseline heart rate: 130 Variability: Moderate (11-25) monitor accelerations: Present Monitor Decelerations: Absent Contraction Frequency (minutes): 4 Uterine Contraction Intensity: Mild Category of Tracing: Reactive Status: Category l Dilation (cm): 2 Effacement (%): 80 Dilation: 1-2 cm Effacement: >/=80% station: -1 Position of cervix: mid Consistency: medium Hatfield score: 8 Non-invasive Membranes Rupture Test: positive Comments: SROM, clear fluid overnight [facility] Medical History (Updated 03/22/23 @ 10:18 by Liam Arteaga MD) Abdominal pain Chronic diarrhea Fecal incontinence (~2018) History of recurrent UTI (urinary tract infection) History of seizure disorder Hyperhidrosis of axilla Irritable bowel syndrome (~2018) No significant family history Surgical History (Updated 07/18/22 @ 10:39 by Courtney Benoit RN) Anesthesia H/O colonoscopy [place] teeth removed (~2013) Family History (Updated 07/18/22 @ 10:42 by Courtney Benoit RN) Grandmother Hypertension Seizure disorder Epilepsy History of heart disease Myocardial infarction Family/Other Cancer Stroke Father Diabetes mellitus Hyperlipidemia Grandfather History of heart disease Hyperlipidemia Grandmother Diabetes mellitus History of heart disease Hyperlipidemia Hypertension Grandfather No problems noted. Grandmother Myocardial infarction Stroke COPD (chronic obstructive pulmonary disease) Social History marital status: unmarried,living together number of children: 0 household members: significant other and family lives independently: Yes housing: apartment pets and animals: Yes (1 dogs) education level: college (Associate's degree) occupational status: employed current occupational exposures/hazards: No special morgan needs: No travel history: over 6 months ago seatbelt use: always helmet use: Yes water heater temp set < 120 deg: Yes working smoke detector in home: Yes fire extinguisher in home: Yes carbon monox detector in home: Yes firearms in home: Yes firearms unloaded and locked: Yes do you feel safe at home: Yes Smoking Status: Former smoker Tobacco: How many years used: 2 second hand exposure: Yes (boyfriend vapes outside, will quit before baby born) alcohol intake: former (1/day prior to learning of ) substance use type: does not use during the past year weight has: other (recent wide fluctuations due to stress) well-balanced diet: daily or most days daily servings fruits/ve or more times/day caffeine: Yes (occasional, aware of 200mg limit) Type(s) of exercise: none (active, but no focused exercise) Meds Home Medications and Allergies Home Medications Medication Instructions Recorded Confirmed Type prenat.vits,jasper,dbk-jwzz-nngli 1 tab PO DAILY 07/18/22 03/28/23 History valacyclovir 500 mg tablet 500 mg PO DAILY #90 tabs 02/27/23 03/28/23 Rx Allergies Allergy/AdvReac Type Severity Reaction Status Date / Time metronidazole AdvReac Mild Vomiting Verified 03/22/23 09:35 Penicillins AdvReac Unknown Anaphylaxis Verified 03/22/23 09:35 Review of Systems Review of Systems Narrative: Problem-specific ROS positives included in HPI OB Exam Vital signs Blood Pressure: 119/64 Pulse Rate: 68 Temperature: 96.4 F HENMT Head: normal to inspection, normocephalic and atraumatic Eyes General: appearance normal, both eyes and all related structures Resp Effort & Inspection: normal respiratory effort and able to speak in complete sentences Auscultation: clear to auscultation bilaterally Cardio Rate: regular rate Rhythm: regular rhythm Heart Sounds: S1 normal, S2 normal and no murmurs Extremities Lower extremity: Yes normal to inspection GI Inspection: normal to inspection Palpation: Yes soft and Yes no hepatosplenomegaly Uterus Location (Fundal Height): 38 Estimated Weight (lbs): 8 Amniotic Fluid: clear Objective Labs 03/27/23 20:10 Assessment and Plan Assessment and Plan Assessment and Plan narrative: ASSESSMENT 1. Intrauterine , 41+2 wks EGA 2. Post-datism 3. GBS negative status PLAN 1. Admit for ripening, induction, and delivery 2. Will augment if spontaneous labor MVU's inadequate following SROM 3. See admission orders Time Spent with Patient Total time spent with greater than 50% in coordination of care (as documented) at patient's floor/unit and/or counseling patient:: 15-24 minutes
[2023-03-27] MEDS: miSOPROStoL 25 MCG TABLET 50 MCG PO (20:52)
[2023-03-27] MEDS: LACTATED RINGERS 1,000 ML 100 ML IV (20:52)
[2023-03-27] MEDS: ACYCLOVIR 400 MG TABLET PO (20:52)
[2023-03-27 20:56] LABS: Add Manual Diff / Slide Review NO; Basophils Absolute Auto 0 /uL (0-100); Basophils Percent Auto 0.5 % (0-2); Eosinophils Absolute Auto 0 /uL (0-450); Eosinophils Percent Auto 0.3 % (2-4); Hematocrit 34.2 % (36-46); Hemoglobin 11.7 g/dL (12.0-16.0); Lymphocytes Absolute Auto 1000 /uL (1100-4500); Lymphocytes Percent Auto 11.5 % (25-40); Mean Corpuscular HGB Conc 34.3 % (30-36); Mean Corpuscular Volume 90.3 fL (80-100); Monocytes Absolute Auto 700 /uL (0-900); Monocytes Percent Auto 7.9 % (3-14); Neutrophils Absolute Auto 6900 /uL (1500-7000); Neutrophils Percent Auto 79.8 % (50-75); Platelet Count 133 X10^3/uL (150-400); Red Blood Cell Count 3.78 X10^6/uL (4.0-5.2); Red Cell Distribution Width 13.9 % (11.6-14.8); White Blood Cell Count 8.7 X10^3/uL (4.5-11.0)
[2023-03-28] MEDS: miSOPROStoL 25 MCG TABLET 50 MCG PO (01:00)
[2023-03-28 08:09] VITALS: BP 119/64; PULSE 68; TEMP 35.8
[2023-03-28] MEDS: ACYCLOVIR 400 MG TABLET PO ×3 (09:13→21:36)
[2023-03-28] MEDS: LACTATED RINGERS 1,000 ML 100 ML IV ×2 (09:14→14:32)
[2023-03-28] MEDS: FENT 2MCG/ML BUPIV 0.125% EPI 200 MCG/100 ML PLAST..BAG 8 MCG EPIDURAL ×2 (10:00→14:32)
[2023-03-28] MEDS: OXYTOCIN PREMIX 30 UNIT/500 ML PLAST..BAG IV (10:59)
[2023-03-28] MEDS: diphenhydrAMINE 50 MG/ML VIAL 25 MG IV (12:43)
--- NOTE | 2023-03-28 13:15 | PM.AN.REGBLK ---
[facility] <Prakash Meier, DO - Last Filed: 03/28/23 13:33> Pre-procedure Procedure: Continuous Lumbar Epidural for L&D Attending OB provider: Liam Arteaga PMH/ROS narrative: term induction, ITP during , platelets 133, no other significant PMH. ASA Class: II Labs: Hct 34.2 % (36-46) L 03/27/23 20:10 Plt Count 133 X10^3/uL (150-400) L 03/27/23 20:10 Medications: Current Medications Generic Name Dose Route Start Last Admin Trade Name Freq PRN Reason Stop Dose Admin Acyclovir 400 mg 03/27/23 21:00 03/28/23 09:13 Acyclovir 400 Mg Tablet PO 400 mg TID ESTEVAN Administration Calcium Carbonate 1,000 mg 03/27/23 20:26 Calcium Carbonate 500 Mg Tab PO Q4HR PRN Dyspepsia Carboprost Tromethamine 250 mcg 03/27/23 20:22 Carboprost 250 Mcg/Ml Ampul IM Q90M PRN Bleeding Diphenhydramine HCl 25 mg 03/28/23 10:22 03/28/23 12:43 Diphenhydramine 50 Mg/Ml Vial IV 25 mg Q10M PRN Administration Pruritis Oxytocin/Lactated Ringer's 30 unit in 500 mls @ 200 mls/hr 03/27/23 20:22 Oxytocin Premix IV CONT PRN Bleeding Protocol Tranexamic Acid 1,000 mg/ 100 mls @ 200 mls/hr 03/27/23 20:22 Sodium Chloride IV NOW PRN Bleeding Lactated Ringer's 1,000 mls @ 100 mls/hr 03/27/23 20:30 03/28/23 09:14 Lactated Ringers IV 100 mls/hr CONT ESTEVAN Administration FENT 2MCG/ML BUPIV 0.125% EPI 200 mcg in 100 mls @ 8 mls/hr 03/28/23 10:30 03/28/23 10:00 Fentanyl/Bupiv/Ns 2mcg/Ml - 0.125% EPIDURAL 8 mls/hr CONT ESTEVAN Administration Oxytocin/Lactated Ringer's 30 unit in 500 mls @ 2 mls/hr 03/28/23 10:52 03/28/23 10:59 Oxytocin Premix IV 2 milliunit/min TITRATE ESTEVAN 2 mls/hr Administration Protocol 2 MILLIUNIT/MIN Lidocaine HCl 20 ml 03/27/23 20:22 Lidocaine 1% 20 Ml INJ INTRA-OP PRN Post Delivery Methylergonovine Maleate 0.2 mg 03/27/23 20:22 Methylergonovine 0.2 Mg Tablet PO Q6HR PRN Heavy Bleeding Methylergonovine Maleate 0.2 mg 03/27/23 20:22 Methylergonovine 0.2 Mg/Ml Vial IM NOW PRN Bleeding Misoprostol 800 mcg 03/27/23 20:22 Misoprostol 200 Mcg Tablet SD NOW PRN Bleeding Misoprostol 400 mcg 03/27/23 20:22 Misoprostol 200 Mcg Tablet SL NOW PRN Bleeding Misoprostol 50 mcg 03/28/23 09:00 Misoprostol 25 Mcg Tablet PO Q4H ESTEVAN Nalbuphine HCl 2.5 mg 03/28/23 10:22 Nalbuphine 20 Mg/Ml Ampul IV Q10M PRN Pruritis Naloxone HCl 0.2 mg 03/27/23 20:22 Naloxone 0.4 Mg/Ml Vial IV Q2MIN PRN Opiate Reversal Ondansetron HCl 8 mg 03/28/23 00:00 Ondansetron 4 Mg/2 Ml Inj IV Q6HR ESTEVAN Oxytocin 10 unit 03/27/23 20:22 Oxytocin 10 Unit/Ml Vial IM NOW PRN Bleeding Zolpidem Tartrate 5 mg 03/27/23 20:26 Zolpidem 5 Mg Tablet PO BEDTIME PRN Sleep Allergies: Allergies Allergy/AdvReac Type Severity Reaction Status Date / Time metronidazole AdvReac Mild Vomiting Verified 03/22/23 09:35 Penicillins AdvReac Unknown Anaphylaxis Verified 03/22/23 09:35 Procedure Insertion date: 03/28/23 Insertion time: 09:51 Prep/Local: betadine x3 and 1% lidocaine Interspace: L34 Patient position: sitting Needle: 18 gauge Porfiriotead (CSE: 27g Pencan through Hustead, clear CSF, 2.5mg MPF bupiv) Loss of resistance with: saline HARVINDER at (cm): 4 Catheter placed at SKIN (cm): 10 Catheter in SPACE (cm): 6 Insertion: No CSF, No Blood, No Paresthesia with insertion, No Paresthesia with injection and No Test dose reaction Initial Medications TEST DOSE time: 09:52 TEST DOSE: 1.5% lidocaine with epinephrine 1:200k (mL): 3 BOLUS DOSE time: 10:00 BOLUS DOSE (mL): 4 BOLUS DOSE med: other (infusate) Infusion INFUSION: 0.125% bupivacaine and with fentanyl 2 mcg/mL Initial rate (mL/hr): 8 Subsequent interventions: PCEA at 8mL/h, 4mL q15 prn Post-procedure Anesthesia time START: 09:46 <Star Jay MD - Last Filed: 03/29/23 12:38> Post-procedure Anesthesia time END: 22:39 Post-procedure Anesthesia Assessment: Yes CV function: HR/BP stable, Yes Resp function: RR/sat/airway adequate, Yes Post-op hydration adequate, Yes Pain control adequate, Yes Nausea & vomiting absent, Yes Temperature > 36 C and Yes Mental status appropriate
--- NOTE | 2023-03-28 16:26 | PM.OBPNLAB ---
Date/Time Date Patient Seen: 03/28/23 Time Patient Seen: 16:26 Pain Control Pain control: tolerating well and epidural Pelvic Exam Dilation (cm): 9 Effacement (%): 100 station: -1 Amniotic membrane status: Ruptured Comments: CISCO forewaters @ 12:50, fluid clear Contractions Contractions on admission: none Monitor mode: Internal (IUPC inserted 1622) Pitocin rate (mU/min): 2 Contraction frequency (min): 4 Contraction duration (min): 1 Contraction pattern: Irregular Contraction phase: Resting Contraction intensity: Mild Intrauterine tone measurement: 20 Status status: Category l Heart Rate Baseline: 135 Monitor Accelerations: Episodic Monitor Decelerations: Absent Monitor Variability: Moderate Assessment and Plan Assessment: active labor and induction ongoing Comments: Patient has had a partial anterior lip x 2+ hrs. IUPC inserted to assess MVU's. Bedside US shows the to be in LOP position. Will optimize augmentation and use position changes to affect spontaneous rotation to OA and have patient push past partial lip when feasible.
--- NOTE | 2023-03-28 18:53 | PM.OBPNLAB ---
Date/Time Date Patient Seen: 03/28/23 Time Patient Seen: 18:53 Pain Control Pain control: tolerating well and epidural Pelvic Exam Dilation (cm): 10 Effacement (%): 100 station: +1 Amniotic membrane status: Ruptured Contractions Contractions on admission: regular Monitor mode: Internal (IUPC inserted 1622) Pitocin rate (mU/min): 6 Contraction frequency (min): 4 Contraction duration (min): 1 Contraction pattern: Irregular Contraction phase: Resting Contraction intensity: Mild Intrauterine tone measurement: 20 Status status: Category l Heart Rate Baseline: 135 Monitor Accelerations: Present Monitor Decelerations: Absent Monitor Variability: Moderate Assessment and Plan Assessment: active labor Plan: continuous present management Comments: Will initiate pushing and anticipate
[2023-03-28] MEDS: FENT 2MCG/ML BUPIV 0.125% EPI 200 MCG/100 ML PLAST..BAG 12 MCG EPIDURAL (21:22)
--- NOTE | 2023-03-28 23:04 | PATH_ITS ---
[facility] Accession Number: [id number] No. of containers..01 Tissue . 01 Material submitted: . placenta - PLACENTA . 01 Diagnosis: Placenta, Delivery: Mature spencer placenta (347 grams) with scattered calcifications. - Negative for villitis, infarction, thrombosis, and retroplacental hematoma. Trivascular umbilical cord. - Negative for funisitis and true knots. membranes with acute chorioamnionitis. MRV 04/03/20231952 Local . 01 Electronically signed: . Gretchen Beckwith MD, Pathologist NPI- [id number] . 01 Gross description: . The specimen is received in formalin labeled with the patient's name, , and placenta consists of a discoid spencer placenta with a trimmed weight of 347 grams, measuring 20.5 x 16.6 x 1.5 cm, and no accessory lobe is identified. . The membranes are possibly incomplete and are mac and opaque with discoloration occupying approximately 10% of the membrane surface. They attach and are disrupted at the margin. . The cord measures 49.3 cm in length by 0.8 cm in average diameter with a leftward coil and an index of approximately 2 twists per 5 cm. The cord inserts centrally, and sectioning reveals unremarkable trivascular architecture with no knots of lesions identified. . The surface is blue-hanna with normal arborizing vasculature and no areas of discoloration identified. The amnion is presumably diffusely separate from the surface. . A roughened, slightly disrupted area is noted adjacent to the cord measuring 3.5 cm in greatest dimension. No discoloration or additional lesions are identified. . The maternal surface is apparently complete with diffuse small pale mac, roughened areas consistent with calcification. No additional lesions or discoloration is identified. Sectioning reveals a diffusely gritty red cut surface with no areas of discoloration or lesion identified. Buffet Attendant sections are submitted as follows: A1: Membrane roll and end of cord. A2: Membrane roll and maternal end of cord. A3: Full thickness section with roughened area adjacent to cord. A4-A6: Central full thickness sections with diffuse gritty areas. ([id number]) /MRV 03/30/2023 1237 Local . 01 Pathologist provided ICD-10: O43.90 . 01 CPT . 976923 Specimen Comment: A courtesy copy of this report has been sent to [phone] Performed at: 01 [facility] [address], [place], [place] [id number] MD Kenji De Dios MD Phone: [phone]
[2023-03-28] MEDS: fentaNYL 100 MCG/2 ML INJ IV (23:10)
[2023-03-28] MEDS: METHYLERGONOVINE 0.2 MG/ML VIAL IM (23:19)
[2023-03-28] MEDS: TRANEXAMIC ACID 1,000 MG in SODIUM CHLORIDE 0.9% 100 ML 200 MG IV (23:24)
[2023-03-28] MEDS: ONDANSETRON 4 MG/2 ML INJ 8 MG IV (23:25)
[2023-03-29] VITALS (18 sets, daily range): BP systolic 104–125; BP diastolic 48–98; PULSE 95–144; RESP 13–19; TEMP 36.8–37.3; O2SAT 100
[2023-03-29 00:05] LABS: Add Manual Diff / Slide Review NO; Basophils Absolute Auto 100 /uL (0-100); Basophils Percent Auto 0.7 % (0-2); Eosinophils Absolute Auto 0 /uL (0-450); Eosinophils Percent Auto 0.1 % (2-4); Hematocrit 26.2 % (36-46); Hemoglobin 8.6 g/dL (12.0-16.0); Lymphocytes Absolute Auto 1500 /uL (1100-4500); Lymphocytes Percent Auto 8.2 % (25-40); Mean Corpuscular Hemoglobin 30.3 PG (26-34); Mean Corpuscular Volume 91.8 fL (80-100); Monocytes Absolute Auto 1200 /uL (0-900); Monocytes Percent Auto 6.3 % (3-14); Neutrophils Absolute Auto 15900 /uL (1500-7000); Neutrophils Percent Auto 84.7 % (50-75); Platelet Count 188 X10^3/uL (150-400); Red Blood Cell Count 2.85 X10^6/uL (4.0-5.2); White Blood Cell Count 18.7 X10^3/uL (4.5-11.0)
[2023-03-29] MEDS: CLINDAMYCIN 900 MG/50 ML PIGGYBACK 50 MG IV (00:06)
[2023-03-29 00:08] LABS: INR 1.1 (0.9-1.3); Prothrombin Time 12.3 SECONDS (10.1-12.7)
[2023-03-29 00:10] LABS: PTT Partial Thromboplastin Tim 23 SECONDS (26-36)
--- NOTE | 2023-03-29 00:23 | SUR.OPER ---
Lithotomy on padded OR bed, head on pillow, arms secured on padded arm boards at <90 degrees abduction. Legs secured in padded yellow fins stirrups.
[2023-03-29] MEDS: GENTAMICIN IV (00:35)
[2023-03-29] MEDS: SODIUM CHLORIDE 0.9% IV (00:35)
[2023-03-29] MEDS: TERBUTALINE 1 MG/ML VIAL 0.25 MG SUBCUT (00:37)
[2023-03-29] MEDS: LACTATED RINGERS 1,000 ML 1000 ML IV ×5 (00:40→03:02)
[2023-03-29] MEDS: OXYTOCIN 10 UNIT/ML VIAL IM (01:25)
--- NOTE | 2023-03-29 02:19 | PM.OBPRVD ---
Labor & Delivery Delivery date: 03/28/23 Intrapartal Events: None and Prolonged 2nd Stage > 2.5 hours Cervical ripening method: per misoprostal protocol Induction method: per pitocin protocol Delivery monitor: external FHT and internal uterine Route of delivery: Episiotomy description: None L&D Laceration Description: Perineal - 1st Degree and Labial (1st degree, right) Delivery repair: chromic Estimated blood loss (mL): 1,700 Quantitative Blood Loss: 1,638 Anesthesia Type: Epidural Complications: Uterine inversion Narrative: Following a 3 hour 49 minute 2nd stage, the patient delivered spontaneously over an intact perineum a viable female with Apgars of 8/9 and a weight of 3642 g (8 lb 0.5 oz). Skin to skin contact was initiated immediately following delivery of the and delayed cord clamping performed. Once the umbilical cord was doubly clamped and cut, a sample of cord blood was obtained for routine studies. Third stage duration was 25 minutes with sustained cord traction with suprapubic countertraction required to deliver the placenta which was somewhat fibrotic. Following delivery of the placenta, intravenous Pitocin was initiated immediately and inspection of placenta revealed a quarter sized defect in the mid placenta consistent with a possible retained placental fragment. Manual examination of the endometrial cavity to rule out a retained placenta fragment was attempted at which point the fundus was noted to be inverted. All uterotonics were discontinued immediately and attempts were made to manually replace the inverted fundus. These attempts were unsuccessful and due to persistent bleeding, the decision was made to proceed immediately to the operating room for examination under anesthesia and manual replacement of the inverted uterine fundus. Written informed consent was obtained and the patient was transferred on an emergent basis to the operating room for further management of uterine inversion with hemorrhage. Baby 1: Infant gender: Female Presentation: vertex Position: Left Occiput Anterior Placenta delivery description: Spontaneous and Expressed Cord Vessel Description: 3 Vessels score (1 min): 8 score (5 min): 9 weight: 8 lb 0.468 oz Plan for aftercare: Other (Patient transferred to the operating room for emergent examination under anesthesia and attempt manual replacement of the uterine fundus following inversion)
--- NOTE | 2023-03-29 02:22 | PM.GYNOP.1 ---
Operative Date/Time/Diagnoses Date of procedure: 03/28/23 Time of procedure: 23:55 Pre-op diagnosis: Uterine inversion hemorrhage Post-op diagnosis: same Procedure & Clinicians Procedure: Procedures Operation Date: 03/28/23 23:55 Actual Procedure Side Surgeon p Examination under anesthesia, Manual reinsertion of the uterus (attempted/unsuccessful), Exploratory Laparotomy, Richard Procedure (Obstetric) s Repair of obstetrical perineal lacerations Liam Arteaga MD Indications: Norah is a 22-year-old status post spontaneous vaginal at 10:39 p.m. on the evening of 03/28/2023 who shortly after the delivery of the placenta was found to have inversion of the uterine fundus. Oxytocin discontinued immediately following identification of the inversion and patient administered TXA 1000 mg IV and Methergine 0.2 mg IM in the delivery room. Patient is typed and crossed for 2 units of packed red blood cells which were transferred to the operating room where the patient is transferred a nonemergent basis for examination under anesthesia and attempt to manually reduce the inversion of the uterine fundus. In addition she has received a single dose of intravenous clindamycin and gentamicin for antibiotic prophylaxis. Surgeon: Liam Arteaga Supervisor Extruding Department: Aicha Morales Anesthesia Type: General and Epidural Operative Notes Findings: Upon examination under anesthesia the presence of uterine version is confirmed and despite multiple attempts by both Dr. Arteaga and Dr. Morales, reduction of the inversion was not possible by vaginal approach and was therefore abandoned in favor of exploratory laparotomy. Upon exploratory laparotomy, inversion is again confirmed with a large cup type defect at the fundus. Tubes and ovaries appeared normal as did the remainder of the gravid/ anatomy. Closure Type: primary Specimen(s): none Applied: catheter Estimated blood loss (mL): 1,442 Blood products transfused: packed red blood cells (2U PRBC) Procedure in detail: After transfer the patient to the operating room, the epidural was dosed so as to be able to perform examination under anesthesia. A pre-surgical safety time-out was then taken in accordance with [facility] Main OR protocols. The perineum, vagina, and lower abdomen were then prepped and draped in the usual manner for exam under anesthesia. Patient received four boluses of nitroglycerin 50 mcg each so as to facilitate uterine relaxation. In addition the patient received terbutaline 0.25 mg subQ. Despite numerous efforts by Dr. Morales and Dr. Arteaga to reduce the inverted fundus, this could not be achieved vaginally, and the decision was made to proceed to exploratory laparotomy. I left the operating room at that point to discuss the need to move forward with exploratory laparotomy with her family and obtained verbal consent for doing so. The patient was then re-prepped and draped redraped for laparotomy. Patient underwent rapid sequence induction of general anesthesia. A 12 cm Pfannenstiel incision was then made and carried down to the deep fascia which was incised transversely, and from the underlying rectus abdominis cephalad and caudad before entry into the abdomen by sharp and blunt dissection. Once the abdominal cavity had been entered, an Josué self-retaining retractor was placed and the uterus visualized. [place] clamps were then applied to each round ligament and the round ligaments were used to slowly and gently reduce the inverted fundus. Once the fundus had been successfully reduced, oxytocin and Hemabate were administered. Intra myometrial Pitocin was also administered with a total of 10 units injected. The fundus gradually firmed and vaginal bleeding became minimal. At that point the uterus was replaced into the abdominal cavity and the uterus itself carefully inspected for any other additional abnormalities. Two small rents in the serosa from application of the Marcus clamps were secured with 3-0 chromic catgut using [id number] stitches. Hemostasis was excellent and the anterior peritoneum was closed with 2-0 Vicryl in a running stitch. Fascia was closed with 0 Vicryl in a running stitch initiated at both angles and tying separately near the midline. The subcutaneous tissues were brought together with 2-0 Vicryl and the skin edges brought together with 4-0 Monocryl using a running subcuticular stitch. Mastisol was applied followed by 1 in Steri-Strips. Telfa and an ABD pad were placed and a compression dressing applied. Attention was then turned to repair of the obstetrical lacerations which consisted of a first-degree right-sided labial laceration and a first-degree midline perineal laceration. Both were closed with 2-0 chromic in running interlocking stitches. At this point the procedure was terminated and the patient awakened from anesthesia after having tolerated the procedure well. Complications: none Post-operative Condition: stable Disposition: PACU Plan for aftercare: Routine post ex-lap care
[2023-03-29 02:33] LABS: Hematocrit 23.4 % (36-46); Hemoglobin 7.9 g/dL (12.0-16.0)
--- NOTE | 2023-03-29 02:45 | SUR.PHASEI ---
H&H 7.9 and 23; notified Dr Arteaga of recent results; no new orders.
[2023-03-29] MEDS: LACTATED RINGERS 1,000 ML 100 ML IV (04:02)
[2023-03-29] MEDS: ACETAMINOPHEN 325 MG TABLET 650 MG PO ×3 (06:29→19:54)
[2023-03-29] MEDS: LANOLIN OINT 7 GM 1 APPLIC TOP (06:31)
--- NOTE | 2023-03-29 07:56 | PM.OBPN.1 ---
Subjective - OB Subjective Patient comments: no complaints, incisional pain, tolerating diet, flatus present and other (Easily fatigued with activity) [place] baby status: doing well and nursing well [place] feeding status: exclusively breast feeding Narrative: Minimal ambulation thus far. Minimal lochia overnight. Date Patient Seen: 03/29/23 Time Patient Seen: 07:57 Exam Vital Signs (past 8 hours): - 03/29/23 02:17 03/29/23 00:24 03/29/23 02:30 Temperature 98.2 F Pulse Rate 133 H 124 H 144 H Respiratory Rate 18 13 15 Blood Pressure 118/55 L 125/48 L 124/98 H Pulse Oximetry 100 100 100 Oxygen Delivery Method Room Air Room Air Room Air 03/29/23 02:35 03/29/23 02:35 03/29/23 02:40 Temperature Pulse Rate 139 H 139 H 124 H Respiratory Rate 18 19 18 Blood Pressure 120/55 L 120/55 L 104/56 L Pulse Oximetry 100 100 100 Oxygen Delivery Method Room Air Room Air Room Air 03/29/23 02:54 Temperature Pulse Rate 111 H Respiratory Rate 15 Blood Pressure 115/58 L Pulse Oximetry 100 Oxygen Delivery Method Room Air Oxygen Delivery Method Room Air Const General: cooperative and comfortable Nutritional Appearance: average body habitus Orientation: alert and oriented x3 HENMT Head: normal to inspection, atraumatic and abrasion Ears: hearing grossly normal bilaterally Face and sinus: face symmetric Eyes General: appearance normal, both eyes and all related structures Conjunctivae: conjunctivae normal Sclera: sclerae normal EOM: EOM intact bilaterally Neck Neck: normal visual inspection Resp Effort & Inspection: normal respiratory effort and able to speak in complete sentences Auscultation: clear to auscultation bilaterally Cardio Rate: regular rate and tachycardic Rhythm: regular rhythm Heart Sounds: S1 normal, S2 normal and no murmurs GI Inspection: normal to inspection and incision (Surgical dressing clean and dry) Palpation: soft, no hepatosplenomegaly and tender (Mild, diffuse postsurgical tenderness) External Female Exam: other (No significant bleeding noted) Extrem General: no calf tenderness Psych Appearance: grossly normal Mental Status: mental status grossly normal Speech and Movement: speech and movement normal Mood: congruent mood Affect: normal affect Attitude: cooperative Thought Process: normal Thought Content: normal Judgment: judgment good Objective Labs 03/29/23 11:10 Labs: Laboratory Results - last 24 hr 03/27/23 03/28/23 03/28/23 20:10 21:51 21:51 WBC 18.7 H D RBC 2.85 L Hgb 8.6 L Hct 26.2 L MCV 91.8 MCH 30.3 MCHC 33.0 RDW 14.0 Plt Count 188 Neut % (Auto) 84.7 H Lymph % (Auto) 8.2 L [place] % (Auto) 6.3 Eos % (Auto) 0.1 L Baso % (Auto) 0.7 Neut # (Auto) 96240 H Lymph # (Auto) 1500 [place] # (Auto) 1200 H Eos # (Auto) 0 Baso # (Auto) 100 PT 12.3 INR 1.1 APTT 23 L Blood Type O Positive Antibody Screen Negative Crossmatch See Detail 03/29/23 02:25 WBC RBC Hgb 7.9 L Hct 23.4 L MCV MCH MCHC RDW Plt Count Neut % (Auto) Lymph % (Auto) [place] % (Auto) Eos % (Auto) Baso % (Auto) Neut # (Auto) Lymph # (Auto) [place] # (Auto) Eos # (Auto) Baso # (Auto) PT INR APTT Blood Type Antibody Screen Crossmatch Assessment & Plan Assessment and Plan (1) Obstetric inversion of uterus with baby delivered and problem: Status: Acute (2) hemorrhage, condition: Status: Acute (3) Anemia due to blood loss, acute: Status: Acute Plan day: 1 Comments: Continue routine postoperative care Transfuse 2 additional units of packed red blood cells Intravenous iron sucrose 300 mg today and again tomorrow morning Gradual increase in ambulation as tolerated Time Spent With Patient Time: Total time spent is greater than 50% in coordination of care (as documented) at patient's floor/unit and/or counseling patient: Time with patient: 15-24 minutes
[2023-03-29] MEDS: IRON SUCROSE 300 MG in SODIUM CHLORIDE 0.9% 250 ML 176.667 MG IV (09:23)
[2023-03-29] MEDS: PRENATAL VIT,CALC/IRON/FOLIC 1 TABLET 1 TAB PO (09:25)
[2023-03-29] MEDS: ACYCLOVIR 400 MG TABLET PO ×3 (09:25→21:11)
[2023-03-29] MEDS: OXYCODONE IR 10 MG TABLET PO (11:16)
[2023-03-29 11:21] LABS: Basophils Absolute Auto 0 /uL (0-100); Basophils Percent Auto 0.2 % (0-2); Eosinophils Absolute Auto 0 /uL (0-450); Lymphocytes Absolute Auto 700 /uL (1100-4500); Lymphocytes Percent Auto 4.5 % (25-40); Mean Corpuscular HGB Conc 34.5 % (30-36); Mean Corpuscular Hemoglobin 30.8 PG (26-34); Mean Corpuscular Volume 89.2 fL (80-100); Monocytes Absolute Auto 1100 /uL (0-900); Monocytes Percent Auto 7.2 % (3-14); Neutrophils Absolute Auto 13800 /uL (1500-7000); Neutrophils Percent Auto 88.1 % (50-75); Platelet Count 97 X10^3/uL (150-400); Red Blood Cell Count 2.05 X10^6/uL (4.0-5.2); Red Cell Distribution Width 13.9 % (11.6-14.8); White Blood Cell Count 15.7 X10^3/uL (4.5-11.0)
[2023-03-29 11:25] LABS: Add Manual Diff / Slide Review SLIDE REVIEW
[2023-03-29 11:27] LABS: Hematocrit 18.3 % (36-46); Hemoglobin 6.3 g/dL (12.0-16.0)
[2023-03-29 11:46] LABS: Microcytosis 1+
--- NOTE | 2023-03-29 12:33 | P.PCN_ITS ---
[facility] Pre-procedure Labs: Hct 18.3 % (36-46) L* 03/29/23 11:10 Plt Count 97 X10^3/uL (150-400) L 03/29/23 11:10 Medications: Current Medications Generic Name Dose Route Start Last Admin Trade Name Prabhu PRN Reason Stop Dose Admin Acetaminophen 650 mg 03/29/23 03:35 03/29/23 06:29 Acetaminophen 325 Mg Tablet PO 650 mg Q6H ESTEVAN Administration Acyclovir 400 mg 03/27/23 21:00 03/29/23 09:25 Acyclovir 400 Mg Tablet PO 400 mg TID ESTEVAN Administration Carboprost Tromethamine 250 mcg 03/29/23 03:35 Carboprost 250 Mcg/Ml Ampul IM Q90M PRN Bleeding Emollient Ointment 1 applic 03/29/23 03:35 03/29/23 06:31 Lanolin Oint 7 Gm TOP 1 applic PRN PRN Administration Irritation Oxytocin/Lactated Ringer's 30 unit in 500 mls @ 200 mls/hr 03/29/23 03:35 Oxytocin Premix IV NOW PRN Bleeding Protocol Tranexamic Acid 1,000 mg/ 100 mls @ 200 mls/hr 03/29/23 03:35 Sodium Chloride IV NOW PRN Bleeding Ibuprofen 600 mg 03/30/23 02:15 Ibuprofen 600 Mg Tablet PO Q6H [facility] Ketorolac Tromethamine 30 mg 03/29/23 03:35 03/29/23 11:11 Ketorolac 30 Mg/Ml Vial IV 03/29/23 21:36 Not Given Q6H ESTEVAN Methylergonovine Maleate 0.2 mg 03/29/23 03:35 Methylergonovine 0.2 Mg/Ml Vial IM NOW PRN Bleeding Methylergonovine Maleate 0.2 mg 03/29/23 03:35 Methylergonovine 0.2 Mg Tablet PO Q6H PRN Bleeding Misoprostol 800 mcg 03/29/23 03:35 Misoprostol 200 Mcg Tablet DC NOW PRN Bleeding Misoprostol 400 mcg 03/29/23 03:35 Misoprostol 200 Mcg Tablet SL NOW PRN Bleeding Morphine Sulfate 4 mg 03/29/23 03:35 Morphine 4 Mg/Ml Inj IV Q4H PRN Pain, Severe (7-10) Naloxone HCl 0.2 mg 03/29/23 03:35 Naloxone 0.4 Mg/Ml Vial IV Q2MIN PRN Opiate Reversal Ondansetron HCl 8 mg 03/29/23 03:35 Ondansetron 4 Mg/2 Ml Inj IV Q6H PRN Nausea And Vomiting Oxycodone HCl 10 mg 03/29/23 03:35 03/29/23 11:16 Oxycodone Ir 10 Mg Tablet PO 5 mg Q4H PRN Administration Pain, Severe (7-10) Oxycodone HCl 5 mg 03/29/23 11:14 Oxycodone Ir 5 Mg Tablet PO Q4HR PRN Pain, Moderate (4-6) Oxytocin 10 unit 03/29/23 03:35 Oxytocin 10 Unit/Ml Vial IM NOW PRN Bleeding Vit/Calcium/Iron/Folic Ac 1 tab 03/29/23 09:00 03/29/23 09:25 Vit,Calc/Iron/Folic 1 Tablet PO 1 tab DAILY ESTEVAN Administration Allergies: Allergies Allergy/AdvReac Type Severity Reaction Status Date / Time metronidazole AdvReac Mild Vomiting Verified 03/22/23 09:35 Penicillins AdvReac Unknown Anaphylaxis Verified 03/22/23 09:35 Post-procedure Anesthesia time END: 22:39 Post-procedure Anesthesia Assessment: Yes CV function: HR/BP stable, Yes Resp function: RR/sat/airway adequate, Yes Post-op hydration adequate, Yes Pain control adequate, Yes Nausea & vomiting absent, Yes Temperature > 36 C and Yes Mental status appropriate
[2023-03-29] MEDS: OXYCODONE IR 5 MG TABLET PO ×2 (17:36→21:11)
[2023-03-30] MEDS: ACETAMINOPHEN 325 MG TABLET 650 MG PO ×3 (01:28→15:10)
[2023-03-30] MEDS: OXYCODONE IR 5 MG TABLET PO ×3 (01:28→18:50)
[2023-03-30 06:46] LABS: Add Manual Diff / Slide Review NO; Basophils Absolute Auto 100 /uL (0-100); Basophils Percent Auto 0.6 % (0-2); Eosinophils Absolute Auto 0 /uL (0-450); Eosinophils Percent Auto 0.2 % (2-4); Hematocrit 23.5 % (36-46); Hemoglobin 8.2 g/dL (12.0-16.0); Lymphocytes Absolute Auto 1200 /uL (1100-4500); Lymphocytes Percent Auto 7.8 % (25-40); Mean Corpuscular HGB Conc 34.8 % (30-36); Mean Corpuscular Hemoglobin 30.4 PG (26-34); Mean Corpuscular Volume 87.5 fL (80-100); Monocytes Absolute Auto 1000 /uL (0-900); Monocytes Percent Auto 6.5 % (3-14); Neutrophils Absolute Auto 12600 /uL (1500-7000); Neutrophils Percent Auto 84.9 % (50-75); Platelet Count 98 X10^3/uL (150-400); Red Blood Cell Count 2.69 X10^6/uL (4.0-5.2); Red Cell Distribution Width 15.1 % (11.6-14.8); White Blood Cell Count 14.8 X10^3/uL (4.5-11.0)
[2023-03-30] MEDS: PRENATAL VIT,CALC/IRON/FOLIC 1 TABLET 1 TAB PO (08:59)
[2023-03-30] MEDS: ACYCLOVIR 400 MG TABLET PO ×2 (08:59→15:10)
[2023-03-30] MEDS: IRON SUCROSE 300 MG in SODIUM CHLORIDE 0.9% 250 ML 176.667 MG IV (09:00)
[2023-03-30] MEDS: IBUPROFEN 600 MG TABLET PO ×2 (09:49→18:50)
[2023-03-30] MEDS: DOCUSATE 100 MG CAPSULE PO (09:50)
--- NOTE | 2023-03-30 13:21 | PM.OBDS.1 ---
Discharge Providers Provider Date of admission: 03/27/23 19:22 Discharge Date: 03/30/23 Primary care physician: NATHAN Olivier Consults: 03/29/23 03:35 Consult to Computed Tomography Scanner Operator Routine Comment: Discharge provider: Liam Arteaga MD Summary Hospital Course Date Patient Seen: 03/30/23 Time Patient Seen: 13:21 Diagnoses: Intrauterine gestation, 41+3 weeks gestational age, delivered by spontaneous vaginal Uterine inversion hemorrhage Status post exploratory laparotomy Anemia due to acute blood loss Hospital Course: Norah was admitted on the evening of 03/27/2023 for cervical ripening/induction due to postdatism. She responded well to oral Cytotec and on the morning of 03/28/2023 was initiated on intravenous Pitocin. She delivered on the evening of 03/28/2023 a viable female with Apgars of 8/9, and a weight of 3642 g (8 lb 0.5 oz). She sustained a first-degree perineal laceration at the time of delivery. Due to a partially adherent placenta, patient experienced uterine inversion following delivery of the placenta. Attempts to reduce the uterine inversion in the delivery room were unsuccessful and the decision was made to take the patient to the operating room for examination under anesthesia and attempted manual reduction of the inverted uterus. Those efforts were unsuccessful in the operating room and the decision was made to perform exploratory laparotomy via Pfannenstiel incision. Using the Richard procedure technique, manual reduction of the uterine inversion was accomplished abdominally without significant difficulty. Details of the delivery and the post delivery procedures is well summarized on my procedure notes. Intraoperatively the patient received 2 units of packed red blood cells and a 2nd 2 units on the afternoon of the 1st postoperative day when her hemoglobin and hematocrit were found to jose at 6.3 and 18.3 respectively. Post transfusion her hemoglobin and hematocrit were 8.2 and 23.5 respectively and the patient was asymptomatic. In addition to a total of 4 units of packed red blood cells, patient also received 2 doses of 300 mg IV iron sucrose. Following the delivery and exploratory laparotomy, patient and her infant both did well with the mother experiencing prompt return of bowel and bladder function, she is ambulating independently, tolerating regular diet, and her pain is well controlled with oral pain medications. She will be discharged at this time in an afebrile normotensive condition to home after counseling regarding precautionary symptoms, limitations of activity, medications, and plans for follow-up which will be in 1 week for an incision check. Medications at discharge will include resumption of all pre delivery medications, oxycodone 5 mg p.o. q.6 hours as needed pain, dispense 20 with no refills, docusate 100 mg p.o. b.i.d. as needed constipation, and ibuprofen 600 mg p.o. q.6 hours as needed pain. In addition the patient will be taking iron and vitamin-C twice daily for the next 30 days. Peripartum Data Infant Delivery Method: Natural Vaginal Laceration Description: Perineal - 1st Degree Episiotomy description: None Procedures: Continuous lumbar epidural Spontaneous vaginal Examination under anesthesia Attempted manual reduction of uterine inversion (unsuccessful) Exploratory laparotomy [place] procedure (obstetrical) complications: transfusion and other (Uterine inversion) 1: Gender: Female Disposition of : home Discharge Diagnosis (1) Obstetric inversion of uterus with baby delivered and problem: Status: Acute (2) hemorrhage, condition: Status: Acute (3) Anemia due to blood loss, acute: Status: Acute Status at Discharge Cognitive/behavioral status at discharge: oriented Functional status at discharge: independent ambulation Overall status at discharge: patient is progressing back to baseline Time Spent with Patient Time attestation: Total time spent providing and/or coordinating discharge services: Objective Labs 03/30/23 06:35 Labs: Laboratory Results - last 24 hr 03/27/23 03/30/23 20:10 06:35 WBC 14.8 H RBC 2.69 L Hgb 8.2 L Hct 23.5 L MCV 87.5 MCH 30.4 MCHC 34.8 RDW 15.1 H Plt Count 98 L Neut % (Auto) 84.9 H Lymph % (Auto) 7.8 L [place] % (Auto) 6.5 Eos % (Auto) 0.2 L Baso % (Auto) 0.6 Neut # (Auto) 88434 H Lymph # (Auto) 1200 [place] # (Auto) 1000 H Eos # (Auto) 0 Baso # (Auto) 100 Blood Type O Positive Antibody Screen Negative Crossmatch See Detail Exam Vital Signs (past 8 hours): Oxygen Delivery Method Room Air Const General: cooperative and comfortable Nutritional Appearance: average body habitus Orientation: alert and oriented x3 HENMT Head: normal to inspection, atraumatic and abrasion Ears: hearing grossly normal bilaterally Face and sinus: face symmetric Eyes General: appearance normal, both eyes and all related structures Conjunctivae: conjunctivae normal Sclera: sclerae normal EOM: EOM intact bilaterally Neck Neck: normal visual inspection Resp Effort & Inspection: normal respiratory effort and able to speak in complete sentences Auscultation: clear to auscultation bilaterally Cardio Rate: regular rate Rhythm: regular rhythm Heart Sounds: S1 normal, S2 normal and no murmurs GI Inspection: normal to inspection and incision (Pfannenstiel clean and dry, compression dressing removed, Aquacel applied) Palpation: soft, no hepatosplenomegaly and tender (Mild, diffuse postsurgical tenderness) Auscultation: normal bowel sounds External Female Exam: other (No significant bleeding noted) Extrem General: no calf tenderness Psych Appearance: grossly normal Mental Status: mental status grossly normal Speech and Movement: speech and movement normal Mood: congruent mood Affect: normal affect Attitude: cooperative Thought Process: normal Thought Content: normal Judgment: judgment good Discharge Plan Discharge Plan Patient Disposition: Home Provider Discharge Comment: Please review the written instructions you received when you were discharged from the hospital. Your follow-up appointment will be scheduled for 1 week after delivery and I look forward to seeing you then. If however in the meanwhile, you have any issues, concerns, or questions, please contact me either through the office phone at [phone], or via the patient portal. Discharge orders & Medications Prescriptions: New docusate sodium 100 mg Capsule 100 mg PO BID PRN (Reason: constipation) Qty: 30 0RF ibuprofen 600 mg Tablet 600 mg PO Q6H Qty: 60 0RF oxycodone 5 mg Tablet 5 mg PO Q6HR PRN (Reason: pain) Qty: 20 0RF Continued valacyclovir 500 mg tablet 500 mg PO DAILY Qty: 90 3RF prenat.vits,jasper,wyn-krng-dymux Tablet 1 tab PO DAILY Follow up/Referrals: Liam Arteaga MD [Physician] - (Please follow up with Dr Arteaga on Monday04/04/23 for an incision check and Monday05/10/23 for a 6 week follow up. ) Discharge Health Status Multidrug resistant organism: No MDRO Diet/Activity/Treatments Diet: Diet as Tolerated Activity: As tolerated Other treatments: One kmoq-rcr-ngdoulf iron supplement tablet twice daily along with a tablet of vitamin-C for the next 30 days. Axyg-lih-kttzkax Tylenol may be used as needed for additional pain relief. Khgv-ssm-fjutieh MiraLax may be used as needed for constipation. Skin/Wound/Dressing Care Report to your healthcare provider any signs of infection, such as:: chills, fever, increased pain, unusual drainage and unusual redness Dressing: Dressing will be removed in the office at the time of your one-week follow-up appointment Visit Report/Discharge Packet Instructions: DI for Labor and Delivery, Vaginal , DI for Exploratory Laparotomy, DI for and Nipple Soreness, DI for Prescription Opioid Use Stand Alone Forms: Discharge: Care, Patient Portal/API, Stroke Signs & Symptoms Discharge Data Primary Care Provider: Jose Banuelos Discharges patient from system. Discharge Date/Time: 03/30/23 20:06
[2023-03-30 17:16] VITALS: BP 131/77; PULSE 92; RESP 16; TEMP 36.6
== END 2023-03-30 20:06 | disposition home or self-care (01) | DRG 542 ==
PROVIDERS: Admitting Provider Obstetrics & Gynecology; PCP Registered Nurse Diabetes Educator; Referring Provider Obstetrics & Gynecology; Visit Provider Obstetrics & Gynecology
PROC: 10E0XZZ Delivery of Products of Conception, External Approach (ICD-10-PCS; CPT 58260; principal; 2023-03-29 00:45)
DX: O71.2 Postpartum inversion of uterus (principal); O48.0 Post-term pregnancy; Z3A.41 41 weeks gestation of pregnancy; Z37.0 Single live birth; O99.12 Other diseases of the blood and blood-forming organs and certain disorders involving the immune mechanism complicating childbirth; D69.3 Immune thrombocytopenic purpura; Z67.40 Type O blood, Rh positive; O70.0 First degree perineal laceration during delivery; O72.1 Other immediate postpartum hemorrhage; D62 Acute posthemorrhagic anemia; O75.89 Other specified complications of labor and delivery
CPT/HCPCS: 36415; 36430; 49000; 59050; 59200; 59409; 85014; 85018; 85025; 85610; 85730; 86850; 86900; 86901; P9016; G0379; J0330; J1200; J1756; J2210; J2405; J2590; J2704; J3010; J3490

== ENCOUNTER 2023-06-01 10:16 | Emergency (ER) | payer OTHER, MEDICAID, SELFPAY ==
[2023-06-01 10:17] VITALS: BP 138/84; PULSE 83; RESP 14; TEMP 37; O2SAT 96; BMI 28.9
[2023-06-01 10:41] LABS: Bacteria Urine Few (2-10); Culture Indicated Urine Specimen Cultured; RBC Urine None Seen (0-5/HPF); Squamous Epithelial Cell Urine 10-30 /HPF (0-5/HPF); WBC Urine 1-5/HPF (0-5/HPF)
[2023-06-01 10:41] LABS: Add Manual Diff / Slide Review NO; Basophils Absolute Auto 0 /uL (0-100); Basophils Percent Auto 0.6 % (0-2); Eosinophils Absolute Auto 100 /uL (0-450); Eosinophils Percent Auto 1.4 % (2-4); Hematocrit 39.9 % (36-46); Hemoglobin 13.4 g/dL (12.0-16.0); Lymphocytes Absolute Auto 600 /uL (1100-4500); Lymphocytes Percent Auto 12.5 % (25-40); Mean Corpuscular HGB Conc 33.5 % (30-36); Mean Corpuscular Hemoglobin 29.6 PG (26-34); Mean Corpuscular Volume 88.5 fL (80-100); Monocytes Absolute Auto 600 /uL (0-900); Monocytes Percent Auto 12.9 % (3-14); Neutrophils Absolute Auto 3500 /uL (1500-7000); Neutrophils Percent Auto 72.6 % (50-75); Platelet Count 138 X10^3/uL (150-400); Red Blood Cell Count 4.51 X10^6/uL (4.0-5.2); Red Cell Distribution Width 13.7 % (11.6-14.8); White Blood Cell Count 4.9 X10^3/uL (4.5-11.0)
--- NOTE | 2023-06-01 10:44 | DI.RAD.S_ITS ---
PROCEDURE: XR ABDOMEN 1V INDICATIONS: Abdominal pain TECHNIQUE: One view of the abdomen acquired. COMPARISON: None. FINDINGS: Surgical changes and devices: None. Bowel: Bowel gas pattern is nonobstructive. Moderate to large amount of fecal matter throughout the colon is seen. No gross pneumoperitoneum. Soft tissues: No suspicious abdominal calcifications. Visualized solid organ contours appear normal in size. Bones: No suspicious bony lesions. IMPRESSION: Moderate constipation. No bowel obstruction or gross free air. No abnormal renal calcifications. Dictated by: Torrey Marie M.D. on 06/01/2023 at 11:02 Approved by: Torrey Marie M.D. on 06/01/2023 at 11:02
[2023-06-01 10:51] LABS: Alanine Aminotransferase 67 IU/L (<35); Albumin 4.8 g/dL (3.5-5.0); Albumin Globulin Ratio 1.5 (1.0-2.8); Alkaline Phosphatase 106 U/L (38-126); Aspartate Aminotransferase 59 IU/L (14-36); BUN Creatinine Ratio 20.3 (6-22); Bilirubin Total 0.5 mg/dL (0.2-1.3); Blood Urea Nitrogen 13 mg/dL (7-17); Calcium 9.6 mg/dL (8.4-10.2); Carbon Dioxide 24 mmol/L (22-32); Chloride 105 mmol/L (98-107); Estimated Glomerular Filt Rate > 60 mL/min (>60); Globulin 3.1 g/dL (1.7-4.1); Glucose 100 mg/dL (70-100); HEMOLYSIS < 15 (0-50); Lipase 39 U/L (23-300); Potassium 4.4 mmol/L (3.4-5.1); Sodium 140 mmol/L (137-145); Total Protein 7.9 g/dL (6.3-8.2)
--- NOTE | 2023-06-01 10:51 | ED_ITS ---
HPI - General Adult General Chief complaint: Abdominal Pain Stated complaint: severe abd pain, vomiting Time Seen by Provider: 06/01/23 10:44 Source: patient Mode of arrival: Ambulatory History of Present Illness HPI narrative: 22-year-old female who is 8 weeks . She did have a vaginal delivery but did have to have a laparotomy afterwards for removal of the placenta. She is here because this morning she had about 20 minutes of fairly severe abdominal discomfort. She did vomit afterwards. She did feel like she had to have a bowel movement during the time but has yet to have a bowel movement. She currently states her symptoms have improved. No fevers. No urinary symptoms. No vaginal bleeding. Related Data Home Medications Medication Instructions Recorded Confirmed prenat.vits,jasper,[id number] 1 tab PO DAILY 07/18/22 05/10/23 Previous Rx's Medication Instructions Recorded valacyclovir 500 mg tablet 500 mg PO DAILY #90 tabs 02/27/23 docusate sodium 100 mg capsule 100 mg PO BID PRN constipation #30 03/30/23 caps Allergies Allergy/AdvReac Type Severity Reaction Status Date / Time metronidazole AdvReac Mild Vomiting Verified 06/01/23 10:24 Penicillins AdvReac Unknown Anaphylaxis Verified 06/01/23 10:24 Review of Systems Constitutional Constitutional: Reports system reviewed and no additional complaints, except as documented Gastrointestinal Gastrointestinal: Reports system reviewed and no additional complaints, except as documented Genitourinary Genitourinary: Reports system reviewed and no additional complaints, except as documented Integumentary/Breasts Skin/Breast: Reports system reviewed and no additional complaints, except as documented Patient History Medical History Abdominal pain Anemia due to blood loss, acute Chronic diarrhea Fecal incontinence (~2018) History of recurrent UTI (urinary tract infection) History of seizure disorder Hyperhidrosis of axilla Irritable bowel syndrome (~2018) No significant family history Obstetric inversion of uterus with baby delivered and problem hemorrhage, condition Thrombocytopenia affecting Surgical History (Updated 07/18/22 @ 10:39 by Courtney Benoit RN) Anesthesia H/O colonoscopy [place] teeth removed (~2013) Family History (Updated 07/18/22 @ 10:42 by Courtney Benoit RN) Grandmother Hypertension Seizure disorder Epilepsy History of heart disease Myocardial infarction Family/Other Cancer Stroke Father Diabetes mellitus Hyperlipidemia Grandfather History of heart disease Hyperlipidemia Grandmother Diabetes mellitus History of heart disease Hyperlipidemia Hypertension Grandfather No problems noted. Grandmother Myocardial infarction Stroke COPD (chronic obstructive pulmonary disease) Social History marital status: unmarried,living together number of children: 0 household members: significant other and family lives independently: Yes housing: apartment pets and animals: Yes (1 dogs) education level: college (Associate's degree) occupational status: employed current occupational exposures/hazards: No special morgan needs: No travel history: over 6 months ago seatbelt use: always helmet use: Yes water heater temp set < 120 deg: Yes working smoke detector in home: Yes fire extinguisher in home: Yes carbon monox detector in home: Yes firearms in home: Yes firearms unloaded and locked: Yes do you feel safe at home: Yes Smoking Status: Former smoker Tobacco: How many years used: 2 second hand exposure: Yes (boyfriend vapes outside, will quit before baby born) alcohol intake: former (1/day prior to learning of ) substance use type: does not use during the past year weight has: other (recent wide fluctuations due to stress) well-balanced diet: daily or most days daily servings fruits/ve or more times/day caffeine: Yes (occasional, aware of 200mg limit) Type(s) of exercise: none (active, but no focused exercise) Smoking Status: Former smoker tobacco type: cigarettes alcohol intake frequency: holidays/special occasions only Substance Use Type: does not use and marijuana Exam Initial Vital Signs Initial Vital Signs: Vital Signs Temperature 98.6 F 06/01/23 10:17 Pulse Rate 83 06/01/23 10:17 Respiratory Rate 14 06/01/23 10:17 Blood Pressure 138/84 06/01/23 10:17 Pulse Oximetry 96 06/01/23 10:17 Oxygen Delivery Method Room Air 06/01/23 10:17 HENMT Head: normal to inspection and normocephalic Resp Effort & Inspection: normal respiratory effort Cardio Rate: regular rate GI Inspection: normal to inspection and non-distended Palpation: soft, No firm, No guarding and No tender Skin General: no rashes or lesions noted Neuro General: patient alert, patient awake, patient oriented x3 and moves all extremities Course Orders Ordered: ED Orders 06/01/23 10:20 Urine Culture Stat Urine Microscopic Stat 06/01/23 10:32 Complete Blood Count AUTO DIFF Stat Comprehensive Metabolic Panel Stat Lipase Stat 06/01/23 10:44 XR abdomen 1V Stat 06/01/23 11:37 CT abdomen pelvis w con Stat Ondansetron HCl (Ondansetron 4 Mg/2 Ml Inj) 4 mg IV NOW PRN PRN Reason: Nausea And Vomiting Vital Signs Vital signs: Vital Signs - 8 hr 06/01/23 10:17 06/01/23 12:48 Temperature 98.6 F Pulse Rate 83 57 L Respiratory Rate 14 12 Blood Pressure 138/84 119/68 Pulse Oximetry 96 98 Oxygen Delivery Method Room Air Room Air Medical Decision Making Medical Records Medical records reviewed: Yes I reviewed the patient's medical records. Lab Data Lab results reviewed: Yes I reviewed the patient's lab results. 06/01/23 10:32 06/01/23 10:32 Labs: Lab Results 06/01/23 06/01/23 06/01/23 Range/Units 10:20 10:32 10:32 WBC 4.9 (4.5-11.0) X10^3/uL RBC 4.51 (4.0-5.2) X10^6/uL Hgb 13.4 (12.0-16.0) g/dL Hct 39.9 (36-46) % MCV 88.5 (80-100) fL MCH 29.6 (26-34) PG MCHC 33.5 (30-36) % RDW 13.7 (11.6-14.8) % Plt Count 138 L (150-400) X10^3/uL Neut % (Auto) 72.6 (50-75) % Lymph % (Auto) 12.5 L (25-40) % Haywood % (Auto) 12.9 (3-14) % Eos % (Auto) 1.4 L (2-4) % Baso % (Auto) 0.6 (0-2) % Neut # (Auto) 3500 (7081-8467) /uL Lymph # (Auto) 600 L (3672-7709) /uL Haywood # (Auto) 600 (0-900) /uL Eos # (Auto) 100 (0-450) /uL Baso # (Auto) 0 (0-100) /uL Sodium 140 (137-145) mmol/L Potassium 4.4 (3.4-5.1) mmol/L Chloride 105 (98-107) mmol/L Carbon Dioxide 24 (22-32) mmol/L BUN 13 (7-17) mg/dL Creatinine 0.64 (0.52-1.04) mg/dL Estimated GFR > 60 (>60) mL/min BUN/Creatinine Ratio 20.3 (6-22) Glucose 100 (70-100) mg/dL Calcium 9.6 (8.4-10.2) mg/dL Total Bilirubin 0.5 (0.2-1.3) mg/dL AST 59 H (14-36) IU/L ALT 67 H (<35) IU/L Alkaline Phosphatase 106 (38-126) U/L Total Protein 7.9 (6.3-8.2) g/dL Albumin 4.8 (3.5-5.0) g/dL Globulin 3.1 (1.7-4.1) g/dL Albumin/Globulin Ratio 1.5 (1.0-2.8) Lipase 39 (23-300) U/L Urine RBC None seen (0-5/HPF) Urine WBC 1-5/hpf (0-5/HPF) Ur Squamous Epith Cells 10-30 /hpf H D (0-5/HPF) Urine Bacteria Few (2-10) H (None) Ur Culture Indicated? Specimen cultured Point of Care Testing Test Results Negative Urine Dip Bedside Urine Glucose Negative Bedside Urine Bilirubin - Negative Bedside Urine Ketone - Negative Urine Specific Reading 1.010 Bedside Urine Occult Blood - Negative Bedside Urine pH 6.0 Bedside Urine Protein - Negative Bedside Urine Urobilinogen - Negative Bedside Urine Nitrite - Negative Bedside Urine Leukocytes +/- 15 Esterase Point of care testing: Point of Care Testing Test Results Negative Urine Dip Bedside Urine Glucose Negative Bedside Urine Bilirubin - Negative Bedside Urine Ketone - Negative Urine Specific Reading 1.010 Bedside Urine Occult Blood - Negative Bedside Urine pH 6.0 Bedside Urine Protein - Negative Bedside Urine Urobilinogen - Negative Bedside Urine Nitrite - Negative Bedside Urine Leukocytes +/- 15 Esterase Imaging Data Abdominal x-ray: Radiologist's Impression: PROCEDURE:? XR ABDOMEN 1V ? INDICATIONS:? Abdominal pain ? TECHNIQUE:? One view of the abdomen acquired.? ? COMPARISON:? None. ? FINDINGS:? ? Surgical changes and devices:? None.? ? Bowel:? Bowel gas pattern is nonobstructive.? Moderate to large amount of fecal matter throughout the colon is seen.? No gross pneumoperitoneum. ? Soft tissues:? No suspicious abdominal calcifications.? Visualized solid organ contours appear normal in size.? ? Bones:? No suspicious bony lesions.? ? IMPRESSION:? Moderate constipation.? No bowel obstruction or gross free air.? No abnormal renal calcifications. CT scan - abdomen/pelvis: Radiologist's Impression: PROCEDURE:? CT ABDOMEN PELVIS W CON ? INDICATIONS:? Generalized abdominal pain vomiting ? TECHNIQUE:? After the administration of oral and IV contrast, axial sections were acquired from the lung bases to the pubic symphysis.? Coronal and sagittal reformats were performed.? For radiation dose reduction, the following was used:? automated exposure control, adjustment of mA and/or kV according to patient size. ? COMPARISON:? None. ? FINDINGS:? Image quality:? Excellent.? ? Lung bases:? Unremarkable.? ? Heart:? No significant findings. ? ? ABDOMEN: Liver:? Hepatic steatosis is present. Gallbladder:? Unremarkable.? ? Biliary ducts:? Unremarkable.? ? Pancreas:? Unremarkable.? ? Spleen:? Multiple low-attenuation hepatic foci are present within the spleen the largest measuring 3 cm.? The larger focus is most consistent with a simple cysts.? The smaller foci are too small to definitively characterize. Adrenal Glands:? Unremarkable.? ? Kidneys and Ureters:? Unremarkable.? ? ? Stomach and Bowel:? Stomach, small bowel loops, and colon are unremarkable.? Appendix is normal. Peritoneum:? No abnormal intraperitoneal fluid.? No free air.? ? Ventral Wall: ? No hernia.? Abdominal Nodes:? No retroperitoneal or mesenteric adenopathy by size criteria.? Vessels:? Aorta and inferior vena cava are normal in size.? ? PELVIS: Pelvic Organs:? Unremarkable.? ? Bladder:? Unremarkable.? ? Pelvic Nodes: No enlarged lymph nodes.? Miscellaneous: No inguinal hernias are seen. ? ? ? Bones:? Unremarkable.? IMPRESSION:? ? No acute intra-abdominal pelvic process. ? Multiple foci of low attenuation within the spleen.? While the largest is consistent with simple cysts, the smaller foci are too small to definitively characterize.? While these could represent innumerable small cysts or hemangiomas, other etiology such as infection or inflammation or potentially malignancy cannot be definitively excluded.? Nate mmend clinical correlation and interval imaging follow-up. ECG Data Attestation: I personally reviewed and interpreted this ECG as follows: Interpretation: Sinus tachycardia Ventricular rate 105 QRS [address] wave changes MDM Narrative Medical decision making narrative: X-ray shows moderate amount of stool. CT scan shows no acute pathology. Labs unremarkable. She is been asymptomatic since arrival here to the ER. I do suspect that this is a constipation issue. We discussed the use of stool softener/fiber/laxatives. Will discharge patient home with return precautions. She expressed understanding and agreement. We did discuss the incidental finding of the cyst on her CT scan and she was advised to contact her primary doctor for follow-up. Discharge Plan Departure Patient Disposition: Home Clinical Impression: Abdominal pain Instructions: DI for Abdominal Pain-Adult Activity Restrictions/Additional Instructions: Recommend that you continue to take all of your medications as directed. Contac t your primary doctor for a follow-up. I do recommend that you use laxatives and stool softeners as needed like we discussed. Return to the emergency department for new or worsening symptoms. Prescriptions: No Action valacyclovir 500 mg tablet 500 mg PO DAILY Qty: 90 3RF prenat.vits,jasper,[id number] Tablet 1 tab PO DAILY docusate sodium 100 mg Capsule 100 mg PO BID PRN (Reason: constipation) Qty: 30 0RF Referrals: Jose Banuelos ARNP [Primary Care Provider] - Stand Alone Forms: Patient Portal/API
--- NOTE | 2023-06-01 11:37 | DI.CT.S_ITS ---
PROCEDURE: CT ABDOMEN PELVIS W CON INDICATIONS: Generalized abdominal pain vomiting TECHNIQUE: After the administration of oral and IV contrast, axial sections were acquired from the lung bases to the pubic symphysis. Coronal and sagittal reformats were performed. For radiation dose reduction, the following was used: automated exposure control, adjustment of mA and/or kV according to patient size. COMPARISON: None. FINDINGS: Image quality: Excellent. Lung bases: Unremarkable. Heart: No significant findings. ABDOMEN: Liver: Hepatic steatosis is present. Gallbladder: Unremarkable. Biliary ducts: Unremarkable. Pancreas: Unremarkable. Spleen: Multiple low-attenuation hepatic foci are present within the spleen the largest measuring 3 cm. The larger focus is most consistent with a simple cysts. The smaller foci are too small to definitively characterize. Adrenal Glands: Unremarkable. Kidneys and Ureters: Unremarkable. Stomach and Bowel: Stomach, small bowel loops, and colon are unremarkable. Appendix is normal. Peritoneum: No abnormal intraperitoneal fluid. No free air. Ventral Wall: No hernia. Abdominal Nodes: No retroperitoneal or mesenteric adenopathy by size criteria. Vessels: Aorta and inferior vena cava are normal in size. PELVIS: Pelvic Organs: Unremarkable. Bladder: Unremarkable. Pelvic Nodes: No enlarged lymph nodes. Miscellaneous: No inguinal hernias are seen. Bones: Unremarkable. IMPRESSION: No acute intra-abdominal pelvic process. Multiple foci of low attenuation within the spleen. While the largest is consistent with simple cysts, the smaller foci are too small to definitively characterize. While these could represent innumerable small cysts or hemangiomas, other etiology such as infection or inflammation or potentially malignancy cannot be definitively excluded. Recommend clinical correlation and interval imaging follow-up. Dictated by: Nancy Larkin M.D. on 06/01/2023 at 12:30 Approved by: Nancy Larkin M.D. on 06/01/2023 at 12:32
[2023-06-01 12:48] VITALS: BP 119/68; PULSE 57; RESP 12; O2SAT 98
== END 2023-06-01 12:58 | disposition home or self-care (01) ==
PROVIDERS: Emergency Provider Emergency Medicine; PCP Registered Nurse Diabetes Educator
DX: R10.9 Unspecified abdominal pain (principal); R00.0 Tachycardia, unspecified; R11.2 Nausea with vomiting, unspecified
CPT/HCPCS: 36415; 74018; 74177; 80053; 81003; 81015; 81025; 83690; 85025; 87086; 99284; Q9967

== ENCOUNTER → 2023-10-03 15:04 | Outpatient (CLI) | payer OTHER, MEDICAID, SELFPAY ==
[2023-10-03 17:37] LABS: Alanine Aminotransferase 33 IU/L (<35); Albumin 4.8 g/dL (3.5-5.0); Albumin Globulin Ratio 1.5 (1.0-2.8); Alkaline Phosphatase 92 U/L (38-126); Aspartate Aminotransferase 42 IU/L (14-36); Bilirubin Total 0.6 mg/dL (0.2-1.3); Bilirubin Unconjugated 0.2 mg/dL (0.0-1.1); Globulin 3.3 g/dL (1.7-4.1); Total Protein 8.1 g/dL (6.3-8.2)
[2023-10-03 17:41] LABS: HEMOLYSIS 72 (0-50)
== END ==
PROVIDERS: PCP Registered Nurse Diabetes Educator; Referring Provider Physician Assistant; Visit Provider Physician Assistant
DX: R74.8 Abnormal levels of other serum enzymes (principal)
CPT/HCPCS: 36415; 80076; 81002; 81025

== ENCOUNTER → 2023-12-11 11:15 | Outpatient (CLI) | payer OTHER, MEDICAID, SELFPAY ==
--- NOTE | 2023-12-11 11:16 | DI.US.S_ITS ---
PROCEDURE: US ABDOMEN LIMITED INDICATIONS: reeval spleen lesions 6 month f/u TECHNIQUE: Real-time scanning was performed of the spleen, with image documentation. COMPARISON: [facility], CT, CT ABDOMEN PELVIS W CON, 06/01/2023, 11:58. FINDINGS: Spleen: The spleen is normal in size measuring 12.5 cm. Spleen has a mildly heterogeneous appearance. The numerous small hypodensity seen on prior CT are either not well appreciated by ultrasound or have resolved. IMPRESSION: Mild heterogeneous appearance of the spleen. The numerous small hypodensity seen on prior CT are either not well appreciated by ultrasound or resolved. Dictated by: Josias Marie M.D. on 12/11/2023 at 13:21 Approved by: Josias Marie M.D. on 12/11/2023 at 13:27
== END ==
PROVIDERS: PCP Registered Nurse Diabetes Educator; Referring Provider Registered Nurse Diabetes Educator; Visit Provider Registered Nurse Diabetes Educator
DX: D73.89 Other diseases of spleen (principal)
CPT/HCPCS: 76705

== ENCOUNTER → 2023-12-14 13:06 | Outpatient (CLI) | payer OTHER, MEDICAID, SELFPAY | PROVIDERS: PCP Registered Nurse Diabetes Educator; Visit Provider Physician Assistant | DX: R10.30 Lower abdominal pain, unspecified (principal) | CPT/HCPCS: 81002; 81025; 87086 ==

== ENCOUNTER → 2023-12-26 07:45 | Outpatient (CLI) | payer OTHER, MEDICAID, SELFPAY ==
--- NOTE | 2023-12-26 07:47 | DI.US.S_ITS ---
PROCEDURE: US PELVIC COMPLETE INDICATIONS: PELVIC FULLNESS TECHNIQUE: Real-time scanning was performed of the pelvic organs, with image documentation. Additional endovaginal scanning was necessary due to incomplete visualization of the adnexal and endometrial structures by transabdominal scanning. COMPARISON: None. FINDINGS: Uterus: Uterus is anteverted and normal in size at 6.4 x 4.0 x 2.7 cm. The myometrium is homogeneous. The endometrium measures 2.7 mm combined thickness. A 0.5 cm calcification is present at the uterine fundus. Ovaries: The right ovary measures 3.4 x 2.5 x 1.8 cm, with a calculated ovarian volume of 7.8 cc. The left ovary measures 3.3 x 2.1 x 1.7 cm, with a calculated ovarian volume of 6.2 cc. The ovaries have a normal sonographic appearance. Less than 12 follicles can be seen in each ovary. No adnexal masses are seen. Other: No pathologic free abdominal or pelvic fluid. IMPRESSION: 1. Subcentimeter calcification at the uterine fundus. 2. Otherwise unremarkable pelvic ultrasound. We strive to produce accurate, complete, and clear reports of imaging services. To assist us in improving patient care, this report was composed using standard report templates and voice recognition software. Therefore, it may contain abnormal punctuation, insertions and/or omissions. Occasional wrong-word or sound-alike substitutions may occur. Though we review the report and make efforts to correct it, we do recommend that the report be read carefully in proper context to recognize any text inaccuracies. Dictated by: Domitila Vrema M.D. on 12/26/2023 at 8:47 Approved by: Domitila Verma M.D. on 12/26/2023 at 8:54
--- NOTE | 2023-12-26 07:47 | DI.US.S_ITS ---
PROCEDURE: US RENAL COMPLETE INDICATIONS: PRESSURE IN BLADDER AREA TECHNIQUE: Real-time scanning was performed of the kidneys and bladder, with image documentation. COMPARISON: None. FINDINGS: Kidneys: Kidneys are normal in size. Right kidney measures 10.7 cm long; left kidney measures 11.6 cm long. Right renal cortical thickness is 1.5 cm; left renal cortical thickness is 1.3 cm. Renal cortical echotexture is normal. No hydronephrosis or nephrolithiasis. No suspicious solid mass lesions. Bladder: Pre-void bladder volume is 36 mL. Post-void residual lotion not visualized.. Pre-void images demonstrate no intraluminal masses or stones. On pre-void images, bilateral ureteral jets are noted with color Doppler interrogation. (Of note, ureteral jets may not be detectable in up to 25% of cases due to insufficient differences in specific gravity between ureteral and bladder urine). Miscellaneous: No free pelvic fluid. IMPRESSION: No hydronephrosis. Bladder has a normal sonographic appearance. Dictated by: Domitila Verma M.D. on 12/26/2023 at 8:54 Approved by: Domitila Verma M.D. on 12/26/2023 at 8:56
== END ==
LOC: US 07:46
PROVIDERS: PCP Registered Nurse Diabetes Educator; Referring Provider Physician Assistant; Visit Provider Physician Assistant
DX: R19.00 Intra-abdominal and pelvic swelling, mass and lump, unspecified site (principal)
CPT/HCPCS: 76770; 76830; 76856

== ENCOUNTER → 2024-01-02 12:07 | Outpatient (CLI) | payer OTHER, MEDICAID, SELFPAY ==
--- NOTE | 2024-01-02 12:08 | DI.MRI.S_ITS ---
PROCEDURE: MR ABDOMEN WO/W CON INDICATIONS: Re eval spleen TECHNIQUE: Coronal HASTE, axial 2D FLASH in- and [id number]; axial breath-hold T2 FSE. Dynamic axial VIBE during the administration of contrast; post-contrast coronal VIBE or 2D FLASH with fat saturation from the hepatic dome to the iliac crests. Optional diffusion weighted imaging and ADC may be performed. COMPARISON: [facility], CT, CT ABDOMEN PELVIS W CON, 06/01/2023, 11:58. FINDINGS: Image quality: Fair. Motion artifact. Lung bases: Unremarkable. Liver: No solid mass. Tiny cyst at the dome. Gallbladder: No gallstones or wall thickening. Biliary ducts: No biliary dilation. Pancreas: No ductal dilation. Spleen: Measures 12.7 cm in length. Within normal limits in size. Several T2 hypointense foci in the spleen. Previously seen larger cyst at the inferior pole and superior pole of spleen are no longer seen. No suspicious enhancement appreciated. No restricted diffusion. Not well seen on the T1 images Adrenal Glands: No adrenal nodules. Kidneys and Ureters: No hydronephrosis. No solid mass. No complex renal cystic lesion which requires follow up. Stomach and Bowel: Normal colonic caliber, without significant wall thickening. Peritoneum: No abnormal intraperitoneal fluid. No free air. Ventral Wall: No hernia. Abdominal Nodes: No retroperitoneal or mesenteric adenopathy by size criteria. Vessels: Aorta and inferior vena cava are normal in size. Bones: No aggressive osseous abnormality. IMPRESSION: Image quality is somewhat degraded motion 1. Several T2 hypointense foci in the spleen. Indeterminate. Could represent small granuloma is other benign micronodules. 2. At least 2 of the larger cysts in the spleen are resolved. 3. No biliary or pancreatic ductal dilatation. Dictated by: De Kingsley M.D. on 01/02/2024 at 20:47 Approved by: De Kingsley M.D. on 01/02/2024 at 21:08
== END ==
LOC: MRI 12:08
PROVIDERS: PCP Registered Nurse Diabetes Educator; Referring Provider Registered Nurse Diabetes Educator; Visit Provider Registered Nurse Diabetes Educator
DX: D73.89 Other diseases of spleen (principal)
CPT/HCPCS: 74183; A9579

== ENCOUNTER → 2024-06-12 11:48 | Outpatient (CLI) | payer OTHER, MEDICAID, SELFPAY | PROVIDERS: PCP Registered Nurse Diabetes Educator; Visit Provider Physician Assistant | DX: N89.8 Other specified noninflammatory disorders of vagina (principal); R30.0 Dysuria; D73.89 Other diseases of spleen; N39.0 Urinary tract infection, site not specified | CPT/HCPCS: 87086; 87210 ==

== ENCOUNTER → 2024-06-12 12:28 | Outpatient (CLI) | payer OTHER, MEDICAID, SELFPAY ==
[2024-06-12 13:42] LABS: Alanine Aminotransferase 49 IU/L (<35); Albumin 4.4 g/dL (3.5-5.0); Albumin Globulin Ratio 1.6 (1.0-2.8); Alkaline Phosphatase 125 U/L (38-126); Aspartate Aminotransferase 37 IU/L (14-36); BUN Creatinine Ratio 16.4 (6-22); Bilirubin Total 0.4 mg/dL (0.2-1.3); Blood Urea Nitrogen 12 mg/dL (7-17); Calcium 9.6 mg/dL (8.4-10.2); Carbon Dioxide 26 mmol/L (22-32); Chloride 103 mmol/L (98-107); Estimated Glomerular Filt Rate > 60 mL/min (>60); Globulin 2.7 g/dL (1.7-4.1); Glucose 97 mg/dL (70-100); HEMOLYSIS < 15 (0-50); Sodium 136 mmol/L (137-145); Total Protein 7.1 g/dL (6.3-8.2)
[2024-06-12 14:01] LABS: Add Manual Diff / Slide Review NO; Basophils Absolute Auto 0 /uL (0-100); Basophils Percent Auto 0.8 % (0-2); Eosinophils Absolute Auto 100 /uL (0-450); Hemoglobin 13.8 g/dL (12.0-16.0); Lymphocytes Absolute Auto 1100 /uL (1100-4500); Lymphocytes Percent Auto 18.9 % (25-40); Mean Corpuscular HGB Conc 34.5 % (30-36); Mean Corpuscular Hemoglobin 31.3 PG (26-34); Mean Corpuscular Volume 90.9 fL (80-100); Monocytes Absolute Auto 400 /uL (0-900); Monocytes Percent Auto 6.9 % (3-14); Neutrophils Absolute Auto 4100 /uL (1500-7000); Neutrophils Percent Auto 72.4 % (50-75); Platelet Count 168 X10^3/uL (150-400); Red Cell Distribution Width 12.8 % (11.6-14.8); White Blood Cell Count 5.7 X10^3/uL (4.5-11.0)
== END ==
PROVIDERS: PCP Registered Nurse Diabetes Educator; Referring Provider Physician Assistant; Visit Provider Physician Assistant
DX: D73.89 Other diseases of spleen (principal); N39.0 Urinary tract infection, site not specified; N89.8 Other specified noninflammatory disorders of vagina; R30.0 Dysuria
CPT/HCPCS: 36415; 80053; 85025; 87086; 87210

== ENCOUNTER → 2025-01-13 10:38 | Outpatient (CLI) | payer OTHER, SELFPAY ==
--- NOTE | 2025-01-13 10:39 | DI.MRI.S_ITS ---
PROCEDURE: MR ABDOMEN WO/W CON INDICATIONS: reeval spleen TECHNIQUE: Coronal HASTE, axial 2D FLASH in- and [id number]; axial breath-hold T2 FSE. Dynamic axial VIBE during the administration of contrast; post-contrast coronal VIBE or 2D FLASH with fat saturation from the hepatic dome to the iliac crests. Optional diffusion weighted imaging and ADC may be performed. COMPARISON: [facility], MR, MR ABDOMEN WO/W CON, 01/02/2024, 12:18. FINDINGS: Image quality: Diagnostic. Lung bases: Unremarkable. Liver: Moderate hepatic steatosis. No solid mass. Gallbladder: No gallstones or wall thickening. Biliary ducts: No biliary dilation. Pancreas: No ductal dilation. Spleen: The spleen is mildly, measuring 11.1 x 11.9 x 5.1 centimeter, volume of 350 milliliter . The T2 hypointense lesions have nearly completely resolved. Homogeneous enhancement of the spleen. Adrenal Glands: No adrenal nodules. Kidneys and Ureters: No hydronephrosis. No solid mass. No complex renal cystic lesion which requires follow up. Stomach and Bowel: Normal colonic caliber, without significant wall thickening. Peritoneum: No abnormal intraperitoneal fluid. No free air. Ventral Wall: No hernia. Abdominal Nodes: No retroperitoneal or mesenteric adenopathy by size criteria. Vessels: Aorta and inferior vena cava are normal in size. Bones: No aggressive osseous abnormality. IMPRESSION: Near complete resolution of the T2 hypointense subcentimeter foci throughout the spleen. However, the spleen measures greater than expected for age and height, at 350 milliliter volume. Consider hematology referral to exclude a process such as lymphoma. Hepatic steatosis. In the absence of alcohol use or other confounding factors, elevated LFTs may indicate yrrrablmx-[id number]-[id number] steatohepatitis (MASH). Dictated by: Bethel Posada M.D. on 01/13/2025 at 12:42 Approved by: Bethel Posada M.D. on 01/13/2025 at 12:52
== END ==
PROVIDERS: PCP Registered Nurse Diabetes Educator; Referring Provider Registered Nurse Diabetes Educator; Visit Provider Registered Nurse Diabetes Educator
DX: D73.89 Other diseases of spleen (principal); R16.1 Splenomegaly, not elsewhere classified; K76.0 Fatty (change of) liver, not elsewhere classified
CPT/HCPCS: 74183; A9579

== ENCOUNTER → 2025-01-20 09:52 | Outpatient (CLI) | payer OTHER, SELFPAY ==
[2025-01-20 10:27] LABS: Add Manual Diff / Slide Review NO; Basophils Absolute Auto 0 /uL (0-100); Eosinophils Absolute Auto 100 /uL (0-450); Eosinophils Percent Auto 1.3 % (2-4); Hematocrit 39.4 % (36-46); Hemoglobin 13.4 g/dL (12.0-16.0); Lymphocytes Absolute Auto 800 /uL (1100-4500); Lymphocytes Percent Auto 17.3 % (25-40); Mean Corpuscular HGB Conc 33.9 % (30-36); Mean Corpuscular Hemoglobin 31.7 PG (26-34); Mean Corpuscular Volume 93.5 fL (80-100); Monocytes Absolute Auto 300 /uL (0-900); Monocytes Percent Auto 7.4 % (3-14); Neutrophils Absolute Auto 3400 /uL (1500-7000); Platelet Count 159 X10^3/uL (150-400); Red Blood Cell Count 4.22 X10^6/uL (4.0-5.2); Red Cell Distribution Width 12.7 % (11.6-14.8); White Blood Cell Count 4.6 X10^3/uL (4.5-11.0)
[2025-01-20 10:43] LABS: Alanine Aminotransferase 32 IU/L (<35); Albumin 4.9 g/dL (3.5-5.0); Albumin Globulin Ratio 2.1 (1.0-2.8); Alkaline Phosphatase 76 U/L (38-126); Aspartate Aminotransferase 36 IU/L (14-36); BUN Creatinine Ratio 16.4 (6-22); Bilirubin Total 0.7 mg/dL (0.2-1.3); Blood Urea Nitrogen 12 mg/dL (7-17); Calcium 9.7 mg/dL (8.4-10.2); Carbon Dioxide 26 mmol/L (22-32); Chloride 105 mmol/L (98-107); Estimated Glomerular Filt Rate > 60 mL/min (>60); Globulin 2.3 g/dL (1.7-4.1); Glucose 101 mg/dL (70-99); HEMOLYSIS < 15 (0-50); Potassium 4.1 mmol/L (3.4-5.1); Sodium 139 mmol/L (137-145); Total Protein 7.2 g/dL (6.3-8.2)
[2025-01-20 10:44] LABS: HEMOLYSIS < 15 (0-50); Iron 115 ug/dL (37-170)
[2025-01-20 10:57] LABS: Percent Iron Saturation 36 % (15-50); Total Iron Binding Capacity 318 ug/dL (265-497); Transferrin 274 mg/dL (206-381)
[2025-01-20 11:19] LABS: Ferritin 95 ng/mL (6-137)
[2025-01-21 05:39] LABS: IGA 125 mg/dL (87-352); IGG 835 mg/dL (586-1602); IGM 37 mg/dL (26-217)
[2025-01-21 15:05] LABS: Hepatitis B Surface Antigen NEGATIVE s/c (NEGATIVE)
[2025-01-21 15:23] LABS: Hep C Virus Ab w/Reflex Quant NEGATIVE s/c (NEGATIVE)
== END ==
PROVIDERS: PCP Registered Nurse Diabetes Educator; Referring Provider Registered Nurse Diabetes Educator; Visit Provider Registered Nurse Diabetes Educator
DX: R16.1 Splenomegaly, not elsewhere classified (principal)
CPT/HCPCS: 36415; 80053; 82728; 82784; 83540; 83550; 85025; 86803; 87340

== ENCOUNTER → 2025-03-03 15:24 | Outpatient (CLI) | payer OTHER, SELFPAY ==
[2025-03-03 20:23] LABS: Urine N gonorrhoeae NOT DETECTED
[2025-03-03 20:24] LABS: Urine Chlamydia NOT DETECTED
== END ==
PROVIDERS: PCP Registered Nurse Diabetes Educator; Visit Provider Student in an Organized Health Care Education/Training Program
DX: Z11.3 Encounter for screening for infections with a predominantly sexual mode of transmission (principal)
CPT/HCPCS: 87491; 87591

== ENCOUNTER → 2025-03-06 14:00 | Outpatient (CLI) | payer OTHER, SELFPAY ==
[2025-03-06 16:28] LABS: HCG Quantitative /Beta subunit 93851 mIU/mL
== END ==
PROVIDERS: PCP Registered Nurse Diabetes Educator; Referring Provider Registered Nurse Diabetes Educator; Visit Provider Student in an Organized Health Care Education/Training Program
DX: O20.9 Hemorrhage in early pregnancy, unspecified (principal)
CPT/HCPCS: 36415; 84702

== ENCOUNTER → 2025-03-24 08:10 | Outpatient (CLI) | payer OTHER, SELFPAY ==
[2025-03-24 08:34] LABS: Add Manual Diff / Slide Review NO; Hematocrit 35.4 % (36-46); Hemoglobin 12.3 g/dL (12.0-16.0); Lymphocytes Absolute Auto 700 /uL (1100-4500); Mean Corpuscular HGB Conc 34.7 % (30-36); Mean Corpuscular Hemoglobin 31.4 PG (26-34); Mean Corpuscular Volume 90.5 fL (80-100); Platelet Count 116 X10^3/uL (150-400)
[2025-03-24 08:47] LABS: Alanine Aminotransferase 11 IU/L (<35); Albumin 4.3 g/dL (3.5-5.0); Albumin Globulin Ratio 1.7 (1.0-2.8); Alkaline Phosphatase 61 U/L (38-126); Globulin 2.5 g/dL (1.7-4.1); HEMOLYSIS < 15 (0-50); Total Protein 6.8 g/dL (6.3-8.2)
[2025-03-24 09:30] LABS: HCG Quantitative /Beta subunit 104830 mIU/mL
[2025-03-25 15:29] LABS: HIV 1 & 2 Ab/Ag 4th Gen Combo NEGATIVE (NEGATIVE); Hep C Virus Ab w/Reflex Quant NEGATIVE s/c (NEGATIVE); Hepatitis B Surface Antigen NEGATIVE s/c (NEGATIVE)
== END ==
PROVIDERS: PCP Registered Nurse Diabetes Educator; Referring Provider Student in an Organized Health Care Education/Training Program; Visit Provider Student in an Organized Health Care Education/Training Program
DX: O20.9 Hemorrhage in early pregnancy, unspecified (principal)
CPT/HCPCS: 36415; 80055; 80076; 84702; 86787; 86803; 86850; 86900; 86901; 87086; 87389

== ENCOUNTER → 2025-04-04 11:35 | Outpatient (CLI) | payer OTHER, SELFPAY ==
[2025-04-04 12:52] LABS: Natera Collection Specimen Collected
== END ==
PROVIDERS: PCP Registered Nurse Diabetes Educator; Referring Provider Student in an Organized Health Care Education/Training Program; Visit Provider Student in an Organized Health Care Education/Training Program
DX: Z34.02 Encounter for supervision of normal first pregnancy, second trimester (principal); Z36.0 Encounter for antenatal screening for chromosomal anomalies
CPT/HCPCS: 36415

== ENCOUNTER → 2025-05-28 11:57 | Outpatient (CLI) | payer OTHER, SELFPAY ==
--- NOTE | 2025-05-28 11:57 | DI.US.S_ITS ---
PROCEDURE: US OB >= 14 WEEKS FETUS INDICATIONS: 20 weeks anatomy scan OUTSIDE/PRIOR DATING DATA: Working EVELINE is 10/16/2025 TECHNIQUE: Real-time scanning was performed of the fetus, with image documentation and biometric measurements. COMPARISON: [facility], US, OB <= 14 WEEKS FETUS, 04/04/2025, 11:40. FINDINGS: General: A single living intrauterine gestation is present. Presentation: Breech Placenta: Placental position is posterior , without previa. Amniotic fluid index: 15.9 cm, normal range is 5-24 cm. Single deepest vertical pocket is 5 cm. heart rate: 141 beats per minute. Maternal cervical canal: 3.8 cm long. Normal lower limit is 2.5 cm. biometrics: Biparietal diameter: 4.4 cm, 19 weeks and 3 days Head circumference: 17.3 cm, 19 weeks and 6 days Abdominal circumference: 14 cm, 19 weeks and 2 days Femur length: 3.1 cm, 19 weeks and 5 days Clinically estimated gestational age: 19 weeks and 6 days Composite gestational age from present scan: 19 weeks and 4 days Estimated weight and percentile: 2897 g, 27% Anatomic survey: Neuro: Ventricles are non-dilated at less than 10 mm. Cisterna magna is normal at 3-11 mm. Cerebellum is normal in size and morphology. Nuchal skin fold: Normal at less than 6 mm between 14-21 weeks gestational age. Face: Nose and lips, facial profile are normal. Spine: No evidence for spina bifida. Heart: 4-chambered heart is present, with normal ventricular outflow tracts. Diaphragm: Diaphragm is intact. Stomach: Left-sided stomach is present. Kidneys: No hydronephrosis. Normal is less than 5 mm in 2nd trimester, less than 7 mm in 3rd trimester. Cord: 3-vessel cord has orthotopic insertion. Bladder: Normal in size. Extremities: All 4 extremities identified. IMPRESSION: Intrauterine gestation cardiac motion in breech presentation. Normal ALBINO. EFW within normal limits at the 27th percentile. No significant abnormalities on routine anatomic survey Dictated by: Felipe Tomlin M.D. on 05/29/2025 at 9:50 Approved by: Felipe Tomlin M.D. on 05/29/2025 at 9:53
== END ==
LOC: US 11:57
PROVIDERS: PCP Registered Nurse Diabetes Educator; Referring Provider Student in an Organized Health Care Education/Training Program; Visit Provider Student in an Organized Health Care Education/Training Program
DX: Z34.82 Encounter for supervision of other normal pregnancy, second trimester (principal); Z3A.19 19 weeks gestation of pregnancy
CPT/HCPCS: 76811

== ENCOUNTER → 2025-06-26 09:15 | Outpatient (CLI) | payer OTHER, SELFPAY ==
[2025-06-26 12:07] LABS: Add Manual Diff / Slide Review NO; Hematocrit 34.0 % (36-46); Hemoglobin 11.6 g/dL (12.0-16.0); Lymphocytes Absolute Auto 800 /uL (1100-4500); Mean Corpuscular HGB Conc 34.0 % (30-36); Mean Corpuscular Hemoglobin 30.6 PG (26-34); Mean Corpuscular Volume 89.9 fL (80-100); Platelet Count 134 X10^3/uL (150-400)
[2025-06-26 12:49] LABS: GTT (PREG) 1 Hour PP 50gm Dose 144 mg/dL (76-139)
== END ==
PROVIDERS: Student in an Organized Health Care Education/Training Program; PCP Registered Nurse Diabetes Educator; Referring Provider Obstetrics & Gynecology; Visit Provider Obstetrics & Gynecology
DX: O99.119 Other diseases of the blood and blood-forming organs and certain disorders involving the immune mechanism complicating pregnancy, unspecified trimester (principal); Z13.1 Encounter for screening for diabetes mellitus; D69.6 Thrombocytopenia, unspecified
CPT/HCPCS: 36415; 82950; 85025

== ENCOUNTER → 2025-09-01 10:52 | Outpatient (CLI) | payer OTHER, SELFPAY ==
--- NOTE | 2025-09-01 10:53 | DI.US.S_ITS ---
PROCEDURE: US OB LIMITED INDICATIONS: ABNORMAL GLUCOSE TEST - GROWTH OUTSIDE/PRIOR DATING DATA: Last menstrual period (LMP): 01/09/2025 LMP-based estimated date of delivery (EVELINE): 10/16/2025 First dating scan (date and location): 03/03/2025 Estimated date of delivery (EVELINE) from first dating scan: 10/19/2025 The calculations are made using the working EVELINE of 10/16/2025 TECHNIQUE: Real-time scanning was performed of the fetus, with image documentation and biometric measurements. Biophysical profile was also obtained. Endovaginal scanning: Not performed. COMPARISON: 05/28/2025. FINDINGS: General: A single living intrauterine gestation is present. Presentation: Vertex. Placenta: Placental position is posterior/fundal, without previa. Amniotic fluid index: 21.4 cm, normal range is 5-24 cm. Single deepest vertical pocket is 5.8 cm. heart rate: 144 beats per minute. Maternal cervical canal: Closed and measures 4.5 cm long. Normal lower limit is 2.5 cm. biometrics: Biparietal diameter: 8.5 cm, 34 weeks, 1 day Head circumference: 30.7 cm, 34 weeks, 1 day Abdominal circumference: 30.6 cm, 34 weeks, 4 days Femur length: 6.4 cm, 33 weeks, 0 day Clinically estimated gestational age: 33 weeks, 4 days Composite gestational age from present scan: 34 weeks, 0 day Estimated weight and percentile: 2333 g, 57% IMPRESSION: 1. Single live intrauterine gestation with fetus in vertex presentation. heart rate is 144 beats per minute. Normal ALBINO at 21.4 cm. 2. Normal growth. Estimated weight is at 57%. We strive to produce accurate, complete, and clear reports of imaging services. To assist us in improving patient care, this report was composed using standard report templates and voice recognition software. Therefore, it may contain abnormal punctuation, insertions and/or omissions. Occasional wrong-word or sound-alike substitutions may occur. Though we review the report and make efforts to correct it, we do recommend that the report be read carefully in proper context to recognize any text inaccuracies. Dictated by: Torrey Marie M.D. on 09/01/2025 at 13:29 Approved by: Torrey Marie M.D. on 09/01/2025 at 13:32
== END ==
LOC: US 10:53
PROVIDERS: PCP Registered Nurse Diabetes Educator; Referring Provider Registered Nurse Diabetes Educator; Visit Provider Student in an Organized Health Care Education/Training Program
DX: O99.810 Abnormal glucose complicating pregnancy (principal); Z3A.34 34 weeks gestation of pregnancy
CPT/HCPCS: 76815